=== PATIENT | female | born 1945 | race Caucasian/White ===

== ENCOUNTER 2022-02-28 12:26 | Observation (INO) | payer MEDICARE, OTHER ==
[~2022-02-28] VITALS: Ht 160 cm; Wt 55.3 kg
[~2022-02-28 12:26] MED LIST: ACET500 PO; ALBU90OI6 INH; ALBU90OI61 INH; AMLO5; AMLO5 PO; ASPI325 PO; ASPI81CH PO; ASPI81EC PO; ATOR10 PO; BETA BLOCKER; BUPR150T2 PO; BUPR75 PO; CALCIUM CARBONATE PO; CARI350 PO; CARV6.25 PO; CEFP200 PO; CITA20 PO; CLON.5 PO; CLON1 PO; CONEST.625 PO; CONEST1.25 PO; CYAN100 PO; CYAN1000I IM; Carisoprodol350 MG; Cymbalta30 MG; DESV50 PO; DICL50ER PO; DICL75ER PO; DILT120 PO; DIPH50 PO; DOXE10 PO; DULERA 200 MCG/13 GM INH; DULO30 PO; DULO60 PO; Desyrel50 MG PO; Duoneb 2.5-0.5 M3 ML IH; ELIQUIS5 MG PO; ESCI20 PO; ESOM20; ESOM20 PO; ESZO3 PO; EXELON PATCH; GABA300 PO; GABA600 PO; HYDACE5 PO; HYDMOR4 PO; HYDR1TAB94 PO; LEVO750 PO; LORA.5 PO; LORA1 PO; LOSA25 PO; MEMA10 PO; METF500 PO; METO5A PO; METPHE5; MODA200 PO; NAPR500EC PO; OMEP20ER PO; ONDA4 PO; ONDA4ODT MM; OXYACE5T PO; OXYACE7.5T PO; PANT40 PO; PAXIL; PROM25 PO; PROP80ER PO; ROPI1 PO; SERT100 PO; SIMV40 PO; SOMA350 MG PO; SUCR1 PO; SUDOGEST; TOLT4 PO; TOPI25 PO; TRAZ50 PO; VERAMYST NS; VITAMIN D-32000 UNIT PO; Vibramycin100 MG PO; ZOLP10
[2022-02-28 13:00] LABS: BASOPHILS ABSOLUTE AUTO 0.03 K/mm3 (0.00-0.23); BASOPHILS PERCENT AUTO 0 % (0-2); EOSINOPHILS ABSOLUTE AUTO 0.06 K/mm3 (0.00-0.68); EOSINOPHILS PERCENT AUTO 1 % (0-6); Hematocrit 34.8 % (33.0-51.0); Hemoglobin 11.2 g/dL (11.5-16.0); IMMATURE GRAN ABSOLUTE AUTO 0.04 K/mm3 (0.00-0.10); IMMATURE GRAN PERCENT AUTO 1 % (0-1); LYMPHOCYTES ABSOLUTE AUTO 1.79 K/mm3 (0.84-5.20); LYMPHOCYTES PERCENT AUTO 20 % (21-46); MONOCYTES PERCENT AUTO 6 % (4-13); Mean Corpuscular HGB 31.5 pg (26.0-34.0); Mean Corpuscular HGB Conc 32.2 g/dL (31.5-36.5); Mean Corpuscular Volume 98 fL (80-100); Mean Platelet Volume 9.5 fL (9.1-12.4); NEUTROPHILS ABSOLUTE AUTO 6.35 K/mm3 (1.96-9.15); NEUTROPHILS PERCENT AUTO 72 % (41-73); Platelet Count 235 K/mm3 (150-400); RDW Coefficient Variation 17.5 % (11.7-14.2); RDW Standard Deviation 63.4 fL (35.1-46.3); Red Blood Cell Count 3.55 M/mm3 (3.80-5.20); White Blood Cell Count 8.77 K/mm3 (4.00-11.30)
[2022-02-28 13:23] LABS: Albumin, Blood 3.4 g/dL (3.4-5.0); Bilirubin, Total 0.3 mg/dL (0.1-1.0); Bun/Creatinine Ratio 26.1 (12.0-20.0); Calcium, Blood 8.1 mg/dL (8.5-10.1); Globulin, Blood 3.4 g/dL (2.2-4.0); Potassium, Blood 4.1 mmol/L (3.5-5.5); Total Protein, Blood 6.8 g/dL (6.4-8.2)
[2022-02-28] MEDS ORDERED: ATOR40TA PO (15:25)
[2022-02-28] MEDS ORDERED: Buspirone HCl15 MG PO (15:26)
[2022-02-28] MEDS ORDERED: CARBIDOPA-LEVO1 EAC9 PO (15:27)
[2022-02-28] MEDS ORDERED: FURO20 PO (15:28)
[2022-02-28] MEDS ORDERED: Bentyl10 MG PO (15:28)
[2022-02-28] MEDS ORDERED: GABA100 PO (15:28)
[2022-02-28] MEDS ORDERED: SUBVENITE PO (15:28)
[2022-02-28] MEDS ORDERED: METO10 PO (15:29)
[2022-02-28] MEDS ORDERED: PANT40 PO (15:29)
[2022-02-28] MEDS ORDERED: METO25 PO (15:29)
[2022-02-28] MEDS ORDERED: PRAM.5 PO (15:29)
[2022-02-28] MEDS ORDERED: Hytrin1 MG PO (15:30)
[2022-02-28] MEDS ORDERED: SUCR1 (15:30)
[2022-02-28] MEDS ORDERED: Primidone50 MG PO (15:30)
[2022-02-28] MEDS ORDERED: TRAZ150T57 PO (15:31)
[2022-02-28] MEDS ORDERED: Midodrine HCl2.5 MG PO (15:31)
[2022-02-28] MEDS ORDERED: OXYC5 PO (15:32)
[2022-02-28] MEDS ORDERED: DOCU100 PO (15:32)
[2022-02-28] MEDS ORDERED: SACC250C PO (15:32)
[2022-02-28] MEDS ORDERED: ONDA4ODT MM (15:33)
[2022-02-28] MEDS ORDERED: Acetaminophen650 M1 PO (15:33)
[2022-02-28] MEDS ORDERED: COLCHICINE0.6 MG PO (15:33)
[2022-02-28] MEDS ORDERED: MIRALAX17 GM PO (15:33)
[2022-02-28] MEDS ORDERED: VITAMIN B125000 MC1 PO (15:34)
[2022-02-28] MEDS ORDERED: [UNRECOGNIZED DRUG - REMARK] PO (15:35)
--- NOTE | 2022-02-28 19:25 | NUR ---
SHIFT SUMMARY; PATIENT ARRIVED TO [facility] FLOOR AFTER 6PM TONIGHT. SHE IS TUCKED INTO BED AND ASSESSMENTS ARE FINISHED ALL EXCEPT PHYSICAL ASSESSMENT. PATIENT DENIES THAT SHE IS DIABETIC AND REPORT TO NOC SHIFT RN TO RELAY TO MD THAT MAY WANT TO CHANGE DIET ORDER. PATIENT IS AO X 4 ON ARRIVAL AND HER DAUGHTER SANDI AT BEDSIDE IS HER P.O.A. NO SKIN ISSUES ARE NOTED EXCEPT SCARRING OVER LEFT CHEST WALL WHERE PACEMAKER WAS PLACED. WILTONT ABLE TO STAND AND TRANSFER FROM [facility] TO BED WITHOUT DIFFICULTY AND SCOOTS HERSELF INTO A COMFORTABLE POSITION. PER DAUGHTER PATIENT TAKES HER MEDICATIONS WHOLE WITH PUDDING. PER REPORT FROM ER HER HR WAS ELEVATED IN THE 140'S AND LOPRESSOR WAS ORDERED HOWEVER WHEN IT ARRIVED SHE WAS IN THE 60'S SO LOPRESSOR WAS HELD. HAND OFF TO TIMMY CAPUTO AT SHIFT CHANGE.
--- NOTE | 2022-02-28 23:16 | NUR ---
URINE SAMPLE COLLECTED AND SENT TO LAB.
[2022-02-28 23:17] LABS: Source, Urine Clean Catch
[2022-02-28 23:19] LABS: Appearance, Urine Clear (Clear); Bilirubin, Urine Neg (Neg); Blood, Urine Neg (Neg); Color, Urine Pale Yellow (P-Yellow); Glucose Qualitative, Urine Neg (Neg); Ketones, Urine Neg (Neg); Leukocyte Esterase, Urine 1+ (Neg); Nitrite, Urine Neg (Neg); Protein, Urine Neg (Neg); Specific Gravity, Urine 1.015 (1.003-1.022); Urobilinogen, Urine NORM (Normal)
[2022-02-28 23:27] LABS: Bacteria Few /hpf; Red Blood Cells, Urine Not Seen /hpf (0-2); Squamous Epithelial Cells Few /hpf (Few)
--- NOTE | 2022-03-01 05:02 | NUR ---
SHIFT SUMMARY PATIENT REPORTED SIDHU X ONE AND TYLENOL GIVEN PER EMAR. ALSO REPORTED STERNUM PAIN AND OXYCODONE 5 MG GIVEN PER EMAR. AXOX 3-4 AND SBA TO BR. ON ROOM AIR. NPO AT THIS TIME. PIV REMAINS INTACT. TELEMETRY PACED @ 60 PER MONITOR. URINE COLLECTED AND SENT TO LAB. TAKES MEDICATION WHOLE A FEW AT A TIME IN PUDDING. VSS/AFEBRILE. DENIES SOB AND N/V. PATIENT SLEPT MOST OF THE SHIFT EXCEPT WHEN UP FOR URINARY URGENCY. CALL LIGHT IN REACH. BED IN LOWEST POSITION. WILL CONTINUE TO MONITOR UNTIL DAY SHIFT NURSE ASSUMES CARE.
--- NOTE | 2022-03-01 17:52 | NUR ---
SHIFT SUMMARY NO ACUTE CHANGES DURING SHIFT. PATIENT ALERT AND ORIENTED, CALLS APPROPRIATELY. PT ON RA, SBA TO BATHROOM. RESTING IMAGES TAKEN TODAY, STRESS TEST SCHEDULED FOR TOMORROW AT 0830. PT MEDICATED WITH PRN PAIN MEDICATION X 1 TODAY. NO OTHER NEEDS VOICED. CALL LIGHT WITHIN REACH.
--- NOTE | 2022-03-02 04:31 | NUR ---
SHIFT SUMMARY PATIENT HAD NO ACUTE CHANGES. NPO FOR STRESS TEST. AXOX 3-4 AND ONE ASSIST TO BR. TELEMETRY PACED @ 60. TAKES MEDICATION WHOLE WITH WATER A FEW AT A TIME. PIV REMAINS INTACT. DENIES CHEST PAIN, SOB, AND N/V. VSS/AFEBRILE. CALL LIGHT IN REACH. BED IN LOWEST POSITION. WILL CONTINUE TO MONITOR UNTIL DAY SHIFT NURSE ASSUMES CARE.
[2022-03-02 11:55] LABS: Source, Urine Clean Catch
[2022-03-02 11:59] LABS: Appearance, Urine Clear (Clear); Bilirubin, Urine Neg (Neg); Blood, Urine Neg (Neg); Color, Urine Yellow (P-Yellow); Glucose Qualitative, Urine Neg (Neg); Ketones, Urine Neg (Neg); Leukocyte Esterase, Urine 1+ (Neg); Nitrite, Urine Neg (Neg); Protein, Urine Neg (Neg); Urobilinogen, Urine NORM (Normal)
[2022-03-02] MEDS ORDERED: MIDO5 PO (12:20)
[2022-03-02] MEDS ORDERED: CEFD300 PO (12:23)
[2022-03-02 12:24] LABS: White Blood Cells, Urine 0-2 /hpf (0-5)
[2022-03-02] MEDS ORDERED: FLUC150A PO (12:24)
[2022-03-02 12:25] LABS: Red Blood Cells, Urine 0-2 /hpf (0-2)
[2022-03-02 12:26] LABS: Bacteria Rare /hpf; Squamous Epithelial Cells Few /hpf (Few)
== END 2022-03-02 13:27 | disposition home or self-care (01) ==
LOC: ER 12:26 → MEDS 12:27
PROVIDERS: Emergency Medicine; Nurse Practitioner Acute Care; Student in an Organized Health Care Education/Training Program; ADMIT Internal Medicine
DX: I20.0 Unstable angina (principal); I10 Essential (primary) hypertension; J45.909 Unspecified asthma, uncomplicated; K21.9 Gastro-esophageal reflux disease without esophagitis; E78.00 Pure hypercholesterolemia, unspecified; G20 Parkinson's disease; I48.0 Paroxysmal atrial fibrillation; M10.9 Gout, unspecified; F41.9 Anxiety disorder, unspecified; F31.9 Bipolar disorder, unspecified; I95.9 Hypotension, unspecified; E11.8 Type 2 diabetes mellitus with unspecified complications; R30.0 Dysuria; Z88.2 Allergy status to sulfonamides; Z88.1 Allergy status to other antibiotic agents; Z88.5 Allergy status to narcotic agent; Z88.8 Allergy status to other drugs, medicaments and biological substances; Z88.6 Allergy status to analgesic agent; Z91.040 Latex allergy status; Z91.018 Allergy to other foods; Z79.01 Long term (current) use of anticoagulants; Z79.82 Long term (current) use of aspirin; Z79.84 Long term (current) use of oral hypoglycemic drugs; Z86.73 Personal history of transient ischemic attack (TIA), and cerebral infarction without residual deficits; Z86.718 Personal history of other venous thrombosis and embolism; Z98.1 Arthrodesis status; Z96.652 Presence of left artificial knee joint; Z95.0 Presence of cardiac pacemaker; Z66 Do not resuscitate
CPT/HCPCS: 36415; 71045; 78452; 80053; 81001; 84484; 85025; 87086; 93005; 93010; 93017; 96372; 99285-25; A9270; A9500; G0378; J0706; J1650; J2785

== ENCOUNTER 2022-03-06 17:52 | Emergency (ER) | payer MEDICARE, OTHER ==
[~2022-03-06] VITALS: Ht 162.6 cm; Wt 68.0 kg
[~2022-03-06 17:52] MED LIST changes: +ATOR40TA PO; +Acetaminophen650 M1 PO; +Bentyl10 MG PO; +Buspirone HCl15 MG PO; +CARBIDOPA-LEVO1 EAC9 PO; +CEFD300 PO; +COLCHICINE0.6 MG PO; +DOCU100 PO; +FLUC150A PO; +FURO20 PO; +GABA100 PO; +Hytrin1 MG PO; +METO10 PO; +METO25 PO; +MIDO5 PO; +MIRALAX17 GM PO; +Midodrine HCl2.5 MG PO; +OXYC5 PO; +PRAM.5 PO; +Primidone50 MG PO; +SACC250C PO; +SUBVENITE PO; +SUCR1; +TRAZ150T57 PO; +VITAMIN B125000 MC1 PO; +[UNRECOGNIZED DRUG - REMARK] PO
[2022-03-06 18:37] LABS: BASOPHILS ABSOLUTE AUTO 0.03 K/mm3 (0.00-0.23); BASOPHILS PERCENT AUTO 1 % (0-2); EOSINOPHILS ABSOLUTE AUTO 0.11 K/mm3 (0.00-0.68); EOSINOPHILS PERCENT AUTO 2 % (0-6); Hematocrit 31.9 % (33.0-51.0); Hemoglobin 10.6 g/dL (11.5-16.0); IMMATURE GRAN ABSOLUTE AUTO 0.02 K/mm3 (0.00-0.10); IMMATURE GRAN PERCENT AUTO 0 % (0-1); LYMPHOCYTES ABSOLUTE AUTO 2.25 K/mm3 (0.84-5.20); LYMPHOCYTES PERCENT AUTO 41 % (21-46); MONOCYTES PERCENT AUTO 7 % (4-13); Mean Corpuscular HGB 32.6 pg (26.0-34.0); Mean Corpuscular HGB Conc 33.2 g/dL (31.5-36.5); Mean Corpuscular Volume 98 fL (80-100); Mean Platelet Volume 9.2 fL (9.1-12.4); NEUTROPHILS ABSOLUTE AUTO 2.65 K/mm3 (1.96-9.15); NEUTROPHILS PERCENT AUTO 49 % (41-73); Platelet Count 185 K/mm3 (150-400); RDW Standard Deviation 61.5 fL (35.1-46.3); Red Blood Cell Count 3.25 M/mm3 (3.80-5.20); White Blood Cell Count 5.46 K/mm3 (4.00-11.30)
[2022-03-06 18:52] LABS: Albumin, Blood 3.5 g/dL (3.4-5.0); Albumin/Globulin Ratio 1.2 (0.8-1.8); Bilirubin, Total 0.2 mg/dL (0.1-1.0); Bun/Creatinine Ratio 19.6 (12.0-20.0); Calcium, Blood 8.6 mg/dL (8.5-10.1); Creatinine, Blood 1.07 mg/dL (0.40-1.00); Globulin, Blood 2.9 g/dL (2.2-4.0); Magnesium, Blood 2.2 mg/dL (1.6-2.4); Potassium, Blood 4.3 mmol/L (3.5-5.5); Total Protein, Blood 6.4 g/dL (6.4-8.2)
== END 2022-03-06 23:24 | disposition home or self-care (01) ==
LOC: ER 17:52
PROVIDERS: Student in an Organized Health Care Education/Training Program
DX: R07.9 Chest pain, unspecified (principal); I48.0 Paroxysmal atrial fibrillation; E78.5 Hyperlipidemia, unspecified; K21.9 Gastro-esophageal reflux disease without esophagitis; E11.9 Type 2 diabetes mellitus without complications; Z88.2 Allergy status to sulfonamides; Z88.1 Allergy status to other antibiotic agents; Z88.5 Allergy status to narcotic agent; Z88.8 Allergy status to other drugs, medicaments and biological substances; Z88.6 Allergy status to analgesic agent; Z91.018 Allergy to other foods; Z79.899 Other long term (current) drug therapy; Z79.82 Long term (current) use of aspirin; Z86.73 Personal history of transient ischemic attack (TIA), and cerebral infarction without residual deficits
CPT/HCPCS: 71045; 80053; 83735; 84484; 85025; 93005; 93010; A9270

== ENCOUNTER 2022-03-13 07:06 | Observation (INO) | payer MEDICARE, OTHER ==
[~2022-03-13] VITALS: Ht 160 cm; Wt 55.5 kg
[~2022-03-13 07:06] MED LIST changes: -SUCR1
[2022-03-13 08:00] LABS: BASOPHILS ABSOLUTE AUTO 0.03 K/mm3 (0.00-0.23); BASOPHILS PERCENT AUTO 1 % (0-2); EOSINOPHILS ABSOLUTE AUTO 0.11 K/mm3 (0.00-0.68); EOSINOPHILS PERCENT AUTO 2 % (0-6); Hematocrit 38.2 % (33.0-51.0); Hemoglobin 12.3 g/dL (11.5-16.0); IMMATURE GRAN ABSOLUTE AUTO 0.01 K/mm3 (0.00-0.10); IMMATURE GRAN PERCENT AUTO 0 % (0-1); LYMPHOCYTES ABSOLUTE AUTO 2.36 K/mm3 (0.84-5.20); LYMPHOCYTES PERCENT AUTO 45 % (21-46); MONOCYTES ABSOLUTE AUTO 0.45 K/mm3 (0.16-1.47); MONOCYTES PERCENT AUTO 9 % (4-13); Mean Corpuscular HGB Conc 32.2 g/dL (31.5-36.5); Mean Corpuscular Volume 100 fL (80-100); NEUTROPHILS ABSOLUTE AUTO 2.33 K/mm3 (1.96-9.15); NEUTROPHILS PERCENT AUTO 44 % (41-73); Platelet Count 165 K/mm3 (150-400); RDW Coefficient Variation 17.2 % (11.7-14.2); RDW Standard Deviation 63.1 fL (35.1-46.3); Red Blood Cell Count 3.84 M/mm3 (3.80-5.20); White Blood Cell Count 5.29 K/mm3 (4.00-11.30)
[2022-03-13 08:21] LABS: Albumin, Blood 3.4 g/dL (3.4-5.0); Albumin/Globulin Ratio 1.1 (0.8-1.8); Bilirubin, Total 0.2 mg/dL (0.1-1.0); Bun/Creatinine Ratio 17.2 (12.0-20.0); Calcium, Blood 8.6 mg/dL (8.5-10.1); Creatinine, Blood 0.99 mg/dL (0.40-1.00); Globulin, Blood 3.1 g/dL (2.2-4.0); Magnesium, Blood 2.3 mg/dL (1.6-2.4); Potassium, Blood 5.3 mmol/L (3.5-5.5); Total Protein, Blood 6.5 g/dL (6.4-8.2)
--- NOTE | 2022-03-13 18:05 | NUR ---
SHIFT SUMMARY PATIENT IS ALERT AND ORIENTED. PATIENT WAS ADMITTED FOR A SYCOPE EPISODE AT HOME FROM ED. PATIENT HAS HAD NO ACUTE EVENTS THIS SHIFT. VITAL SIGNS REVIEWED. PATIENT HAS NOT COMPLAINED OF PAIN, NAUSEA, SOB, OR VOMITTING THIS SHIFT. PATIENT IS POSITIVE FOR ORTHOSTATIC HYPO. PATIENT IS RESTING COMFORTABLY IN BED SINCE ARRIVAL AT 1615. WILL MONITOR UNTIL SHIFT CHANGE.
--- NOTE | 2022-03-14 03:03 | NUR ---
MARKET RESEARCH ASSISTANT SUMMARY WAS ADMITTED YESTERDAY WITH SYNCOPAL EPISODES. NO NOTED SYNCOPAL EPISODE THIS SHIFT. SOME TREMORS OF UPPER EXTREMITIES. ALERT AND ORIENTED. UP TO BATHROOM WITH OBSERVATION. VSS. SOME DIFFICULTIES TO GET TO SLEEP, NOTIFIED AND ONE DOSE OF ATIVAN 0.5 MG PO ORDERED AND GIVEN, MED EFFECTIVE. HAS BEEN RESTING QUIETLY WITH FEW INTERRUPTIONS. CALL LIGHT IN REACH. WILL CONTINUE TO MONITOR
[2022-03-14 05:33] LABS: Bun/Creatinine Ratio 15.6 (12.0-20.0); Creatinine, Blood 0.9 mg/dL (0.40-1.00); Potassium, Blood 4.2 mmol/L (3.5-5.5)
--- NOTE | 2022-03-14 14:56 | NUR ---
AWARE OF ORTHOSTATIC BPS. DISCHARGE INSTRUCTIONS COMPLETED AND DISCUSSED WITH DAUGHTER AND PT EXPRESSING UNDERSTANDING. SCRIPTS FAXED TO [facility] ON [address]. TO [facility] VIA W/C.
== END 2022-03-14 14:08 | disposition home or self-care (01) ==
LOC: ER 07:06 → MEDS 07:07
PROVIDERS: Nurse Practitioner Acute Care; Student in an Organized Health Care Education/Training Program; ADMIT Internal Medicine
DX: I95.1 Orthostatic hypotension (principal); I48.0 Paroxysmal atrial fibrillation; M10.9 Gout, unspecified; E78.5 Hyperlipidemia, unspecified; K21.9 Gastro-esophageal reflux disease without esophagitis; I10 Essential (primary) hypertension; G20 Parkinson's disease; E11.9 Type 2 diabetes mellitus without complications; I25.10 Atherosclerotic heart disease of native coronary artery without angina pectoris; S09.90XA Unspecified injury of head, initial encounter; F31.9 Bipolar disorder, unspecified; F41.9 Anxiety disorder, unspecified; J45.909 Unspecified asthma, uncomplicated; W18.30XA Fall on same level, unspecified, initial encounter; Y92.002 Bathroom of unspecified non-institutional (private) residence as the place of occurrence of the external cause; Z66 Do not resuscitate; Z88.2 Allergy status to sulfonamides; Z88.1 Allergy status to other antibiotic agents; Z88.5 Allergy status to narcotic agent; Z88.8 Allergy status to other drugs, medicaments and biological substances; Z88.6 Allergy status to analgesic agent; Z91.018 Allergy to other foods; Z91.040 Latex allergy status; Z79.82 Long term (current) use of aspirin; Z86.718 Personal history of other venous thrombosis and embolism; Z86.73 Personal history of transient ischemic attack (TIA), and cerebral infarction without residual deficits; Z98.1 Arthrodesis status; Z96.652 Presence of left artificial knee joint
CPT/HCPCS: 36415; 70450; 71046; 80048; 80053; 83735; 83880; 84484; 85025; 93005; 93010; 96372; 97116; 97161; A9270; G0378; J1650; J7030

== ENCOUNTER 2022-03-21 19:14 | Emergency (ER) | payer MEDICARE, OTHER ==
[~2022-03-21] VITALS: Ht 160 cm; Wt 55.8 kg
[2022-03-21 20:52] LABS: Albumin, Blood 3.2 g/dL (3.4-5.0); Bilirubin, Total 0.3 mg/dL (0.1-1.0); Bun/Creatinine Ratio 17.8 (12.0-20.0); Calcium, Blood 8.4 mg/dL (8.5-10.1); Creatinine, Blood 1.07 mg/dL (0.40-1.00); Globulin, Blood 3.2 g/dL (2.2-4.0); Potassium, Blood 4.8 mmol/L (3.5-5.5); Total Protein, Blood 6.4 g/dL (6.4-8.2)
[2022-03-21 21:40] LABS: BASOPHILS ABSOLUTE AUTO 0.01 K/mm3 (0.00-0.23); BASOPHILS PERCENT AUTO 0 % (0-2); EOSINOPHILS ABSOLUTE AUTO 0.07 K/mm3 (0.00-0.68); EOSINOPHILS PERCENT AUTO 2 % (0-6); Hematocrit 28.5 % (33.0-51.0); Hemoglobin 9.7 g/dL (11.5-16.0); IMMATURE GRAN ABSOLUTE AUTO 0.01 K/mm3 (0.00-0.10); IMMATURE GRAN PERCENT AUTO 0 % (0-1); LYMPHOCYTES ABSOLUTE AUTO 1.74 K/mm3 (0.84-5.20); LYMPHOCYTES PERCENT AUTO 38 % (21-46); MONOCYTES ABSOLUTE AUTO 0.32 K/mm3 (0.16-1.47); MONOCYTES PERCENT AUTO 7 % (4-13); Mean Corpuscular HGB 33.2 pg (26.0-34.0); Mean Corpuscular Volume 98 fL (80-100); NEUTROPHILS ABSOLUTE AUTO 2.44 K/mm3 (1.96-9.15); NEUTROPHILS PERCENT AUTO 53 % (41-73); Platelet Count 155 K/mm3 (150-400); RDW Coefficient Variation 15.6 % (11.7-14.2); RDW Standard Deviation 55.5 fL (35.1-46.3); Red Blood Cell Count 2.92 M/mm3 (3.80-5.20); White Blood Cell Count 4.59 K/mm3 (4.00-11.30)
== END 2022-03-21 23:30 | disposition home or self-care (01) ==
LOC: ER 19:14
PROVIDERS: Emergency Medicine
DX: R07.9 Chest pain, unspecified (principal); I48.0 Paroxysmal atrial fibrillation; E78.5 Hyperlipidemia, unspecified; K21.9 Gastro-esophageal reflux disease without esophagitis; I10 Essential (primary) hypertension; E11.9 Type 2 diabetes mellitus without complications; J45.909 Unspecified asthma, uncomplicated; Z95.0 Presence of cardiac pacemaker; Z88.2 Allergy status to sulfonamides; Z88.1 Allergy status to other antibiotic agents; Z88.5 Allergy status to narcotic agent; Z88.8 Allergy status to other drugs, medicaments and biological substances; Z91.040 Latex allergy status; Z91.041 Radiographic dye allergy status; Z91.018 Allergy to other foods; Z79.899 Other long term (current) drug therapy; Z79.82 Long term (current) use of aspirin
CPT/HCPCS: 36415; 71045; 80053; 83880; 84484; 85025; 93005; 93010

== ENCOUNTER → 2022-04-23 | Outpatient (CLI) | payer MEDICARE, OTHER ==
[2022-04-23 15:57] LABS: Source, Urine Clean Catch
[2022-04-23 18:13] LABS: Appearance, Urine Clear (Clear); Bilirubin, Urine Neg (Neg); Blood, Urine 1+ (Neg); Color, Urine Yellow (P-Yellow); Glucose Qualitative, Urine Neg (Neg); Ketones, Urine Neg (Neg); Leukocyte Esterase, Urine 1+ (Neg); Nitrite, Urine Neg (Neg); Protein, Urine Neg (Neg); Specific Gravity, Urine 1.015 (1.003-1.022); Urobilinogen, Urine NORM (Normal)
[2022-04-23 18:28] LABS: Bacteria Many /hpf; Squamous Epithelial Cells Few /hpf (Few)
== END | disposition home or self-care (01) ==
LOC: LAB SHORT 15:56 → LAB 15:56
PROVIDERS: Internal Medicine
DX: R30.0 Dysuria (principal)
CPT/HCPCS: 81001; 87086

== ENCOUNTER 2022-04-27 19:37 | Emergency (ER) | payer MEDICARE, OTHER ==
[~2022-04-27] VITALS: Ht 160 cm; Wt 58.1 kg
[2022-04-27 21:29] LABS: Influenza A, PCR NEGATIVE (NEGATIVE); Influenza B, PCR NEGATIVE (NEGATIVE); Resp Syncytial Virus, PCR NEGATIVE (NEGATIVE); SARS-Cov-2 (COVID-19) PCR, MMC NEGATIVE (NEGATIVE)
== END 2022-04-27 22:23 | disposition home or self-care (01) ==
LOC: ER 19:37
PROVIDERS: Physician Assistant
DX: J34.89 Other specified disorders of nose and nasal sinuses (principal); E78.5 Hyperlipidemia, unspecified; G20 Parkinson's disease; E11.9 Type 2 diabetes mellitus without complications; K21.9 Gastro-esophageal reflux disease without esophagitis; R06.00 Dyspnea, unspecified; T78.40XA Allergy, unspecified, initial encounter; Z20.822 Contact with and (suspected) exposure to COVID-19; Z79.899 Other long term (current) drug therapy; Z79.82 Long term (current) use of aspirin; Z88.2 Allergy status to sulfonamides; Z88.5 Allergy status to narcotic agent; Z88.1 Allergy status to other antibiotic agents; Z88.8 Allergy status to other drugs, medicaments and biological substances; Z91.018 Allergy to other foods; Z86.73 Personal history of transient ischemic attack (TIA), and cerebral infarction without residual deficits
CPT/HCPCS: 0241U; 71046

== ENCOUNTER 2022-05-29 19:03 | Emergency (ER) | payer MEDICARE, OTHER ==
[~2022-05-29] VITALS: Ht 160 cm; Wt 57.1 kg
[~2022-05-29 19:03] MED LIST changes: +TRAZ100 PO; -TRAZ150T57 PO
[2022-05-31] MEDS ORDERED: CYMBALTA30 M2 PO (20:22)
[2022-05-31] MEDS ORDERED: QUETIAPINE FUMA25 MG PO (20:24)
[2022-05-31] MEDS ORDERED: NEURONTIN300 MG PO (20:25)
[2022-05-31] MEDS ORDERED: GABA300 PO (20:25)
[2022-05-31] MEDS ORDERED: Ativan1 MG PO (20:26)
[2022-05-31] MEDS ORDERED: DEXA4 PO (20:27)
[2022-06-02] MEDS ORDERED: HYDCOR10 PO (12:47)
== END 2022-05-29 20:13 | disposition left against medical advice (07) ==
LOC: ER 19:03
DX: K92.0 Hematemesis (principal); Z79.899 Other long term (current) drug therapy; Z79.82 Long term (current) use of aspirin; Z53.21 Procedure and treatment not carried out due to patient leaving prior to being seen by health care provider
CPT/HCPCS: 99281

== ENCOUNTER 2022-06-03 19:20 | Emergency (ER) | payer MEDICARE, OTHER ==
[~2022-06-03] VITALS: Ht 160 cm; Wt 57.1 kg
[~2022-06-03 19:20] MED LIST changes: +Ativan1 MG PO; +CYMBALTA30 M2 PO; +DEXA4 PO; +HYDCOR10 PO; +NEURONTIN300 MG PO; +QUETIAPINE FUMA25 MG PO
[2022-06-03 21:16] LABS: Albumin, Blood 3.7 g/dL (3.4-5.0); Bilirubin, Total 0.9 mg/dL (0.1-1.0); Bun/Creatinine Ratio 18.6 (12.0-20.0); Calcium, Blood 9.2 mg/dL (8.5-10.1); Creatinine, Blood 0.92 mg/dL (0.40-1.00); Globulin, Blood 3.6 g/dL (2.2-4.0); Potassium, Blood 5.3 mmol/L (3.5-5.5); Total Protein, Blood 7.3 g/dL (6.4-8.2)
[2022-06-03 21:34] LABS: Source, Urine Clean Catch
[2022-06-03 21:38] LABS: Bilirubin, Urine Neg (Neg); Blood, Urine 2+ (Neg); Glucose Qualitative, Urine Neg (Neg); Ketones, Urine Neg (Neg); Leukocyte Esterase, Urine Neg (Neg); Nitrite, Urine Neg (Neg); Protein, Urine 1+ (Neg); Urobilinogen, Urine NORM (Normal)
[2022-06-03 22:01] LABS: Appearance, Urine Clear (Clear); Color, Urine Yellow (P-Yellow)
[2022-06-03 22:02] LABS: Bacteria Few /hpf; Squamous Epithelial Cells Rare /hpf (Few); White Blood Cells, Urine 0-2 /hpf (0-5)
== END 2022-06-04 00:32 | disposition left against medical advice (07) ==
LOC: ER 19:20
PROVIDERS: Student in an Organized Health Care Education/Training Program
DX: I10 Essential (primary) hypertension (principal); Z79.899 Other long term (current) drug therapy; Z79.82 Long term (current) use of aspirin; Z53.21 Procedure and treatment not carried out due to patient leaving prior to being seen by health care provider
CPT/HCPCS: 36415; 71046; 80053; 81001; 84484; 93005; 93010

== ENCOUNTER 2022-07-09 19:15 | Emergency (ER) | payer MEDICARE, OTHER ==
[~2022-07-09] VITALS: Ht 160 cm; Wt 55.8 kg
[~2022-07-09 19:15] MED LIST changes: +Diflucan100 MG PO; +NITR100CA PO
== END 2022-07-09 21:05 | disposition home or self-care (01) ==
LOC: ER 19:15
DX: S50.02XA Contusion of left elbow, initial encounter (principal); S40.012A Contusion of left shoulder, initial encounter; R55 Syncope and collapse; I25.2 Old myocardial infarction; I10 Essential (primary) hypertension; W19.XXXA Unspecified fall, initial encounter; Z79.899 Other long term (current) drug therapy
CPT/HCPCS: 73030; 73080; 99284-25; A9270

== ENCOUNTER 2022-07-14 11:34 | Observation (INO) | payer MEDICARE, OTHER ==
[~2022-07-14] VITALS: Ht 160 cm; Wt 54.9 kg
[2022-07-14 13:00] LABS: Source, Urine Clean Catch
[2022-07-14 13:02] LABS: BASOPHILS ABSOLUTE AUTO 0.04 K/mm3 (0.00-0.23); BASOPHILS PERCENT AUTO 0 % (0-2); EOSINOPHILS ABSOLUTE AUTO 0.07 K/mm3 (0.00-0.68); EOSINOPHILS PERCENT AUTO 1 % (0-6); Hematocrit 30.7 % (33.0-51.0); Hemoglobin 10.1 g/dL (11.5-16.0); IMMATURE GRAN ABSOLUTE AUTO 0.03 K/mm3 (0.00-0.10); IMMATURE GRAN PERCENT AUTO 0 % (0-1); LYMPHOCYTES ABSOLUTE AUTO 1.34 K/mm3 (0.84-5.20); LYMPHOCYTES PERCENT AUTO 14 % (21-46); MONOCYTES ABSOLUTE AUTO 0.54 K/mm3 (0.16-1.47); MONOCYTES PERCENT AUTO 6 % (4-13); Mean Corpuscular HGB 33.3 pg (26.0-34.0); Mean Corpuscular HGB Conc 32.9 g/dL (31.5-36.5); Mean Corpuscular Volume 101 fL (80-100); Mean Platelet Volume 9.1 fL (9.1-12.4); NEUTROPHILS ABSOLUTE AUTO 7.28 K/mm3 (1.96-9.15); NEUTROPHILS PERCENT AUTO 78 % (41-73); Platelet Count 184 K/mm3 (150-400); RDW Coefficient Variation 13.5 % (11.7-14.2); RDW Standard Deviation 49.5 fL (35.1-46.3); Red Blood Cell Count 3.03 M/mm3 (3.80-5.20)
[2022-07-14 13:09] LABS: Appearance, Urine Cloudy (Clear); Bilirubin, Urine Neg (Neg); Blood, Urine 1+ (Neg); Color, Urine Yellow (P-Yellow); Glucose Qualitative, Urine Neg (Neg); Ketones, Urine Neg (Neg); Leukocyte Esterase, Urine 3+ (Neg); Nitrite, Urine Neg (Neg); Protein, Urine 2+ (Neg); Specific Gravity, Urine 1.025 (1.003-1.022); Urobilinogen, Urine NORM (Normal)
[2022-07-14 13:28] LABS: Bacteria Few /hpf; Squamous Epithelial Cells Few /hpf (Few); White Blood Cells, Urine 50-100 /hpf (0-5)
[2022-07-14 13:32] LABS: Salicylate <1.7 mg/dL (2.8-20.0)
[2022-07-14 13:36] LABS: Acetaminophen, Random 9.7 ug/mL (10.0-30.0); Alanine Aminotransfer (ALT/SGP 12 U/L (12-78); Albumin, Blood 3.2 g/dL (3.4-5.0); Albumin/Globulin Ratio 1.1 (0.8-1.8); Alk Phos 57 U/L (50-136); Anion Gap 4 mmol/L (6-16); Aspartate Aminotrans (AST/SGOT 20 U/L (12-37); Bilirubin, Total 0.5 mg/dL (0.1-1.0); Blood Urea Nitrogen 23 mg/dL (8-24); Bun/Creatinine Ratio 21.3 (12.0-20.0); CO2, Blood 24 mmol/L (21-32); Calcium, Blood 8.7 mg/dL (8.5-10.1); Chloride, Blood 110 mmol/L (98-108); Creatinine, Blood 1.08 mg/dL (0.40-1.00); Ethanol (Alcohol), Blood, Med 3 mg/dL; Globulin, Blood 2.9 g/dL (2.2-4.0); Glomerular Filtration Rate 54 (60-); Glucose, Blood 108 mg/dL (70-99); Potassium, Blood 4.6 mmol/L (3.5-5.5); Sodium, Blood 138 mmol/L (136-145); Total Protein, Blood 6.1 g/dL (6.4-8.2)
[2022-07-14 16:09] LABS: U Amphetamine Screen Not Detected; U Barbituate Screen Not Detected; U Benzodiazapine Screen DETECTED; U Buprenorphine Screen Not Detected; U Cannabinoids Screen Not Detected; U Cocaine Screen Not Detected; U Methadone Screen Not Detected; U Methamphetamine Screen Not Detected; U Opiates Screen Not Detected; U Oxycodone Screen Not Detected; U Phencyclidine Screen Not Detected; U Propoxyphene Screen Not Detected
[2022-07-14 16:47] LABS: Influenza A, PCR NEGATIVE (NEGATIVE); Influenza B, PCR NEGATIVE (NEGATIVE); Resp Syncytial Virus, PCR NEGATIVE (NEGATIVE); SARS-Cov-2 (COVID-19) PCR, MMC NEGATIVE (NEGATIVE)
[2022-07-15] MEDS ORDERED: Bentyl10 MG PO (01:51)
[2022-07-15] MEDS ORDERED: Lamictal150 MG PO (01:52)
[2022-07-15] MEDS ORDERED: MIDO5 PO (01:58)
[2022-07-15] MEDS ORDERED: FLUDROCORTISON0.1 M2 PO (01:58)
[2022-07-15] MEDS ORDERED: MORP10S (02:00)
== END 2022-07-15 13:30 ==
LOC: ER 11:34 → EOR 11:35
PROVIDERS: Physician Assistant; Student in an Organized Health Care Education/Training Program; ADMIT Emergency Medicine
DX: F31.9 Bipolar disorder, unspecified (principal); E78.5 Hyperlipidemia, unspecified; K21.9 Gastro-esophageal reflux disease without esophagitis; G20 Parkinson's disease; E11.9 Type 2 diabetes mellitus without complications; J45.909 Unspecified asthma, uncomplicated; Z88.6 Allergy status to analgesic agent; Z88.1 Allergy status to other antibiotic agents; Z91.040 Latex allergy status; Z88.5 Allergy status to narcotic agent; Z88.8 Allergy status to other drugs, medicaments and biological substances; Z91.018 Allergy to other foods; Z79.899 Other long term (current) drug therapy; Z79.82 Long term (current) use of aspirin; Z20.822 Contact with and (suspected) exposure to COVID-19
CPT/HCPCS: 0241U; 80053; 81001; 85025; 87086; 93005; 93010; 99285-25; A9270; G0378; G0480; Q3014

== ENCOUNTER 2022-08-19 02:22 | Day surgery (SDC) | payer MEDICARE, OTHER ==
[~2022-08-19 02:22] MED LIST changes: +FLUDROCORTISON0.1 M2 PO; +Lamictal150 MG PO; +MORP10S
[2022-08-19] MEDS ORDERED: TRAZ100 PO (10:39)
== END 2022-08-19 11:05 | disposition home or self-care (01) ==
LOC: ATC 02:22
DX: I95.1 Orthostatic hypotension (principal); G20 Parkinson's disease; I48.0 Paroxysmal atrial fibrillation; E55.9 Vitamin D deficiency, unspecified; Z79.899 Other long term (current) drug therapy; Z79.82 Long term (current) use of aspirin; Z88.5 Allergy status to narcotic agent; Z88.1 Allergy status to other antibiotic agents
CPT/HCPCS: 36415; 80400; 82533; 96374; J0834

== ENCOUNTER 2022-09-18 14:24 | Emergency (ER) | payer MEDICARE, OTHER ==
[~2022-09-18] VITALS: Ht 160 cm; Wt 61.2 kg
[2022-09-18 15:08] LABS: BASOPHILS ABSOLUTE AUTO 0.03 K/mm3 (0.00-0.23); BASOPHILS PERCENT AUTO 0 % (0-2); EOSINOPHILS ABSOLUTE AUTO 0.03 K/mm3 (0.00-0.68); EOSINOPHILS PERCENT AUTO 0 % (0-6); Hematocrit 33.5 % (33.0-51.0); Hemoglobin 10.9 g/dL (11.5-16.0); IMMATURE GRAN ABSOLUTE AUTO 0.02 K/mm3 (0.00-0.10); IMMATURE GRAN PERCENT AUTO 0 % (0-1); LYMPHOCYTES ABSOLUTE AUTO 1.49 K/mm3 (0.84-5.20); LYMPHOCYTES PERCENT AUTO 22 % (21-46); MONOCYTES ABSOLUTE AUTO 0.45 K/mm3 (0.16-1.47); MONOCYTES PERCENT AUTO 7 % (4-13); Mean Corpuscular HGB 31.5 pg (26.0-34.0); Mean Corpuscular HGB Conc 32.5 g/dL (31.5-36.5); Mean Corpuscular Volume 97 fL (80-100); Mean Platelet Volume 9.4 fL (9.1-12.4); NEUTROPHILS ABSOLUTE AUTO 4.91 K/mm3 (1.96-9.15); NEUTROPHILS PERCENT AUTO 71 % (41-73); Platelet Count 204 K/mm3 (150-400); RDW Coefficient Variation 13.6 % (11.7-14.2); Red Blood Cell Count 3.46 M/mm3 (3.80-5.20); White Blood Cell Count 6.93 K/mm3 (4.00-11.30)
[2022-09-18 15:23] LABS: Albumin, Blood 3.6 g/dL (3.4-5.0); Bilirubin, Total 0.5 mg/dL (0.1-1.0); Bun/Creatinine Ratio 27.2 (12.0-20.0); Calcium, Blood 8.5 mg/dL (8.5-10.1); Creatinine, Blood 1.03 mg/dL (0.40-1.00); Globulin, Blood 3.7 g/dL (2.2-4.0); Potassium, Blood 4.5 mmol/L (3.5-5.5); Total Protein, Blood 7.3 g/dL (6.4-8.2)
[2022-09-18 17:57] VITALS: BP 151/72
== END 2022-09-18 17:57 | disposition home or self-care (01) ==
LOC: ER 14:24
PROVIDERS: Emergency Medicine
DX: R07.89 Other chest pain (principal); R13.10 Dysphagia, unspecified; R10.9 Unspecified abdominal pain; E78.5 Hyperlipidemia, unspecified; I10 Essential (primary) hypertension; G20 Parkinson's disease; K21.9 Gastro-esophageal reflux disease without esophagitis; E11.9 Type 2 diabetes mellitus without complications; Z88.2 Allergy status to sulfonamides; Z88.1 Allergy status to other antibiotic agents; Z88.5 Allergy status to narcotic agent; Z88.8 Allergy status to other drugs, medicaments and biological substances; Z96.652 Presence of left artificial knee joint; Z91.040 Latex allergy status; Z91.018 Allergy to other foods; Z79.899 Other long term (current) drug therapy; Z79.82 Long term (current) use of aspirin
CPT/HCPCS: 71046; 80053; 83690; 84484; 85025; 93005; 93010; 99285-25; A9270

== ENCOUNTER → 2022-11-19 | Outpatient (CLI) | payer MEDICARE, OTHER ==
[~2022-11-19] MED LIST changes: +ACET325 PO; -ASPI81CH PO; +Aspir 8181 MG PO; +B-12 COMPL1000 MCG/2 IM; -CARBIDOPA-LEVO1 EAC9 PO; +Calcium Carbon500 MG PO; +ELIQUIS5 M2 PO; +LACTAID PO; +LIDO700A20 TOP; +LOPE2C PO; +MAGNESIUM PO; +MIRT15 PO; +MIRT15ST; +PANT20 PO; +QUET100 PO; +QUET25 PO; +SINEMET 25-1001 EAC1 PO; +Vitamin D1000 UNI1 PO
[2022-11-19 15:16] LABS: Appearance, Urine Clear (Clear); Bilirubin, Urine Neg (Neg); Blood, Urine 1+ (Neg); Color, Urine Yellow (P-Yellow); Glucose Qualitative, Urine Neg (Neg); Ketones, Urine Neg (Neg); Leukocyte Esterase, Urine 2+ (Neg); Nitrite, Urine Neg (Neg); Protein, Urine 1+ (Neg); Specific Gravity, Urine 1.015 (1.003-1.022); Urobilinogen, Urine NORM (Normal)
[2022-11-19 15:28] LABS: Bacteria Mod /hpf; Hyaline Casts 0-2 /lpf (0-2); Squamous Epithelial Cells Few /hpf (Few); White Blood Cells, Urine 25-50 /hpf (0-5)
== END | disposition home or self-care (01) ==
LOC: LAB SHORT 11:00 → LAB 11:00
PROVIDERS: Internal Medicine
DX: N39.0 Urinary tract infection, site not specified (principal)
CPT/HCPCS: 81001; 87077; 87086; 87186

== ENCOUNTER 2022-11-21 14:22 | Emergency (ER) | payer MEDICARE, OTHER ==
[~2022-11-21] VITALS: Ht 165.1 cm; Wt 63.5 kg
[~2022-11-21 14:22] MED LIST changes: -MIRT15ST
[2022-11-21] MEDS ORDERED: MIRT15ST (14:51)
[2022-11-21 14:59] LABS: BASOPHILS ABSOLUTE AUTO 0.03 K/mm3 (0.00-0.23); BASOPHILS PERCENT AUTO 0 % (0-2); EOSINOPHILS ABSOLUTE AUTO 0.06 K/mm3 (0.00-0.68); EOSINOPHILS PERCENT AUTO 1 % (0-6); Hematocrit 32.4 % (33.0-51.0); Hemoglobin 10.3 g/dL (11.5-16.0); IMMATURE GRAN ABSOLUTE AUTO 0.04 K/mm3 (0.00-0.10); IMMATURE GRAN PERCENT AUTO 1 % (0-1); LYMPHOCYTES ABSOLUTE AUTO 2.27 K/mm3 (0.84-5.20); LYMPHOCYTES PERCENT AUTO 29 % (21-46); MONOCYTES ABSOLUTE AUTO 0.43 K/mm3 (0.16-1.47); MONOCYTES PERCENT AUTO 6 % (4-13); Mean Corpuscular HGB 29.9 pg (26.0-34.0); Mean Corpuscular HGB Conc 31.8 g/dL (31.5-36.5); Mean Corpuscular Volume 94 fL (80-100); Mean Platelet Volume 9.4 fL (9.1-12.4); NEUTROPHILS ABSOLUTE AUTO 4.91 K/mm3 (1.96-9.15); NEUTROPHILS PERCENT AUTO 63 % (41-73); Platelet Count 211 K/mm3 (150-400); RDW Coefficient Variation 15.2 % (11.7-14.2); RDW Standard Deviation 52.3 fL (35.1-46.3); Red Blood Cell Count 3.44 M/mm3 (3.80-5.20); White Blood Cell Count 7.74 K/mm3 (4.00-11.30)
[2022-11-21 15:30] LABS: Albumin, Blood 3.5 g/dL (3.4-5.0); Albumin/Globulin Ratio 1.1 (0.8-1.8); Bilirubin, Total 0.4 mg/dL (0.1-1.0); Bun/Creatinine Ratio 14.8 (12.0-20.0); Calcium, Blood 8.5 mg/dL (8.5-10.1); Creatinine, Blood 1.15 mg/dL (0.40-1.00); Globulin, Blood 3.3 g/dL (2.2-4.0); Potassium, Blood 5.2 mmol/L (3.5-5.5); Total Protein, Blood 6.8 g/dL (6.4-8.2)
[2022-11-21 16:18] LABS: Source, Urine Straight Cath
[2022-11-21 16:45] LABS: Appearance, Urine Clear (Clear); Bilirubin, Urine Neg (Neg); Blood, Urine 1+ (Neg); Color, Urine Yellow (P-Yellow); Glucose Qualitative, Urine Neg (Neg); Ketones, Urine Neg (Neg); Leukocyte Esterase, Urine Neg (Neg); Nitrite, Urine Neg (Neg); Protein, Urine Neg (Neg); Urobilinogen, Urine NORM (Normal)
[2022-11-21 16:59] LABS: Bacteria Few /hpf; Squamous Epithelial Cells Few /hpf (Few); White Blood Cells, Urine 0-2 /hpf (0-5)
[2022-11-21 17:30] VITALS: BP 165/95
== END 2022-11-21 17:45 | disposition home or self-care (01) ==
LOC: ER 14:22
PROVIDERS: Emergency Medicine
DX: R53.1 Weakness (principal); R47.01 Aphasia; E78.5 Hyperlipidemia, unspecified; K21.9 Gastro-esophageal reflux disease without esophagitis; I10 Essential (primary) hypertension; G20 Parkinson's disease; I25.10 Atherosclerotic heart disease of native coronary artery without angina pectoris; E11.9 Type 2 diabetes mellitus without complications; J45.909 Unspecified asthma, uncomplicated; Z86.73 Personal history of transient ischemic attack (TIA), and cerebral infarction without residual deficits; Z86.718 Personal history of other venous thrombosis and embolism; Z88.2 Allergy status to sulfonamides; Z88.1 Allergy status to other antibiotic agents; Z88.5 Allergy status to narcotic agent; Z91.048 Other nonmedicinal substance allergy status; Z88.8 Allergy status to other drugs, medicaments and biological substances; Z91.040 Latex allergy status; Z91.018 Allergy to other foods; Z79.01 Long term (current) use of anticoagulants; Z79.899 Other long term (current) drug therapy
CPT/HCPCS: 51701; 70450; 80053; 81001; 82947; 85025; 93005; 93010; 96374; 96375; 99285-25; A9270; J2060; J2405

== ENCOUNTER 2022-11-26 12:39 | Emergency (ER) | payer MEDICARE, OTHER ==
[~2022-11-26] VITALS: Ht 170.2 cm; Wt 81.7 kg
[~2022-11-26 12:39] MED LIST changes: +MIRT15ST
[2022-11-26 13:27] LABS: BASOPHILS ABSOLUTE AUTO 0.03 K/mm3 (0.00-0.23); BASOPHILS PERCENT AUTO 0 % (0-2); EOSINOPHILS ABSOLUTE AUTO 0.02 K/mm3 (0.00-0.68); EOSINOPHILS PERCENT AUTO 0 % (0-6); Hematocrit 31.8 % (33.0-51.0); Hemoglobin 10.3 g/dL (11.5-16.0); IMMATURE GRAN ABSOLUTE AUTO 0.03 K/mm3 (0.00-0.10); IMMATURE GRAN PERCENT AUTO 0 % (0-1); LYMPHOCYTES ABSOLUTE AUTO 2.04 K/mm3 (0.84-5.20); LYMPHOCYTES PERCENT AUTO 25 % (21-46); MONOCYTES ABSOLUTE AUTO 0.53 K/mm3 (0.16-1.47); MONOCYTES PERCENT AUTO 6 % (4-13); Mean Corpuscular HGB 30.1 pg (26.0-34.0); Mean Corpuscular HGB Conc 32.4 g/dL (31.5-36.5); Mean Corpuscular Volume 93 fL (80-100); Mean Platelet Volume 9.1 fL (9.1-12.4); NEUTROPHILS ABSOLUTE AUTO 5.61 K/mm3 (1.96-9.15); NEUTROPHILS PERCENT AUTO 68 % (41-73); Platelet Count 213 K/mm3 (150-400); RDW Coefficient Variation 15.4 % (11.7-14.2); RDW Standard Deviation 53.1 fL (35.1-46.3); Red Blood Cell Count 3.42 M/mm3 (3.80-5.20); White Blood Cell Count 8.26 K/mm3 (4.00-11.30)
[2022-11-26 13:44] LABS: Albumin, Blood 3.4 g/dL (3.4-5.0); Bilirubin, Total 0.6 mg/dL (0.1-1.0); Bun/Creatinine Ratio 17.6 (12.0-20.0); Calcium, Blood 8.2 mg/dL (8.5-10.1); Creatinine, Blood 1.08 mg/dL (0.40-1.00); Globulin, Blood 3.3 g/dL (2.2-4.0); Potassium, Blood 4.7 mmol/L (3.5-5.5); Total Protein, Blood 6.7 g/dL (6.4-8.2)
[2022-11-26 16:30] VITALS: BP 130/75
[2022-11-26] MEDS ORDERED: METO10 PO (17:31)
[2022-11-26] MEDS ORDERED: ACET500 PO (17:31)
== END 2022-11-26 17:54 | disposition home or self-care (01) ==
LOC: ER 12:39
PROVIDERS: Student in an Organized Health Care Education/Training Program
DX: G43.409 Hemiplegic migraine, not intractable, without status migrainosus (principal); R29.818 Other symptoms and signs involving the nervous system; R29.810 Facial weakness; E78.5 Hyperlipidemia, unspecified; I10 Essential (primary) hypertension; G20 Parkinson's disease; E11.9 Type 2 diabetes mellitus without complications; J45.909 Unspecified asthma, uncomplicated; I48.0 Paroxysmal atrial fibrillation; K21.9 Gastro-esophageal reflux disease without esophagitis; Z86.73 Personal history of transient ischemic attack (TIA), and cerebral infarction without residual deficits; Z86.718 Personal history of other venous thrombosis and embolism; Z88.2 Allergy status to sulfonamides; Z88.1 Allergy status to other antibiotic agents; Z88.5 Allergy status to narcotic agent; Z91.018 Allergy to other foods; Z88.8 Allergy status to other drugs, medicaments and biological substances; Z91.040 Latex allergy status; Z88.6 Allergy status to analgesic agent; Z79.01 Long term (current) use of anticoagulants; Z79.899 Other long term (current) drug therapy
CPT/HCPCS: 70450; 70496; 70498; 80053; 85025; 93005; 93010; 96361; 96374-59; 96375-59; 99285-25; A9270; J1200; J2060; J2765; J7030; Q9967

== ENCOUNTER 2022-12-24 18:20 | Emergency (ER) | payer MEDICARE, OTHER | END 2022-12-24 20:21 | disposition home or self-care (01) | LOC: ER 18:20 | DX: G43.909 Migraine, unspecified, not intractable, without status migrainosus (principal); R07.9 Chest pain, unspecified; R06.02 Shortness of breath; I48.0 Paroxysmal atrial fibrillation; E78.5 Hyperlipidemia, unspecified; K21.9 Gastro-esophageal reflux disease without esophagitis; J45.909 Unspecified asthma, uncomplicated; E11.9 Type 2 diabetes mellitus without complications; G20 Parkinson's disease; I69.920 Aphasia following unspecified cerebrovascular disease; Z95.0 Presence of cardiac pacemaker; Z88.2 Allergy status to sulfonamides; Z88.1 Allergy status to other antibiotic agents; Z88.5 Allergy status to narcotic agent; Z88.8 Allergy status to other drugs, medicaments and biological substances; Z91.040 Latex allergy status; Z91.018 Allergy to other foods; Z79.899 Other long term (current) drug therapy; Z79.01 Long term (current) use of anticoagulants ==

== ENCOUNTER 2023-01-08 13:34 | Day surgery (SDC) | payer MEDICARE, OTHER ==
[~2023-01-08] VITALS: Ht 160 cm; Wt 67.9 kg
[2023-01-08 16:26] VITALS: BP 134/64
--- NOTE | 2023-01-08 16:28 | NUR ---
01/08/23 1628 Roxana Perera IV, DC'Hai AT 1605/WNL/PATIENT TOLERATED IT WELL
== END 2023-01-08 16:15 | disposition home or self-care (01) ==
LOC: ORSCSDS 13:34
DX: D50.9 Iron deficiency anemia, unspecified (principal); R11.2 Nausea with vomiting, unspecified; K29.70 Gastritis, unspecified, without bleeding; Z93.1 Gastrostomy status; Z80.0 Family history of malignant neoplasm of digestive organs; E11.22 Type 2 diabetes mellitus with diabetic chronic kidney disease; N18.30 Chronic kidney disease, stage 3 unspecified; I25.10 Atherosclerotic heart disease of native coronary artery without angina pectoris; E78.5 Hyperlipidemia, unspecified; G47.33 Obstructive sleep apnea (adult) (pediatric); G20 Parkinson's disease; Z86.73 Personal history of transient ischemic attack (TIA), and cerebral infarction without residual deficits; F31.9 Bipolar disorder, unspecified; I25.2 Old myocardial infarction; I48.0 Paroxysmal atrial fibrillation; Z85.038 Personal history of other malignant neoplasm of large intestine; Z79.899 Other long term (current) drug therapy
CPT/HCPCS: 88305; 88342; J2001; J2704; J7120

== ENCOUNTER 2023-02-16 13:42 | Emergency (ER) | payer MEDICARE, OTHER ==
[~2023-02-16] VITALS: Ht 160 cm; Wt 69.4 kg
[2023-02-16 14:00] VITALS: BP 141/70
[2023-02-16 15:13] LABS: BASOPHILS ABSOLUTE AUTO 0.02 K/mm3 (0.00-0.23); BASOPHILS PERCENT AUTO 0 % (0-2); EOSINOPHILS ABSOLUTE AUTO 0.04 K/mm3 (0.00-0.68); EOSINOPHILS PERCENT AUTO 1 % (0-6); Hematocrit 39.4 % (33.0-51.0); Hemoglobin 12.4 g/dL (11.5-16.0); IMMATURE GRAN ABSOLUTE AUTO 0.02 K/mm3 (0.00-0.10); IMMATURE GRAN PERCENT AUTO 0 % (0-1); LYMPHOCYTES ABSOLUTE AUTO 1.66 K/mm3 (0.84-5.20); LYMPHOCYTES PERCENT AUTO 22 % (21-46); MONOCYTES ABSOLUTE AUTO 0.45 K/mm3 (0.16-1.47); MONOCYTES PERCENT AUTO 6 % (4-13); Mean Corpuscular HGB 32.5 pg (26.0-34.0); Mean Corpuscular HGB Conc 31.5 g/dL (31.5-36.5); Mean Corpuscular Volume 103 fL (80-100); Mean Platelet Volume 9.6 fL (9.1-12.4); NEUTROPHILS ABSOLUTE AUTO 5.25 K/mm3 (1.96-9.15); NEUTROPHILS PERCENT AUTO 71 % (41-73); Platelet Count 169 K/mm3 (150-400); RDW Standard Deviation 61.5 fL (35.1-46.3); Red Blood Cell Count 3.82 M/mm3 (3.80-5.20); White Blood Cell Count 7.44 K/mm3 (4.00-11.30)
[2023-02-16 15:35] LABS: Albumin, Blood 3.4 g/dL (3.4-5.0); Bilirubin, Total 0.3 mg/dL (0.1-1.0); Bun/Creatinine Ratio 15.5 (12.0-20.0); Calcium, Blood 8.3 mg/dL (8.5-10.1); Creatinine, Blood 1.1 mg/dL (0.40-1.00); Globulin, Blood 3.4 g/dL (2.2-4.0); Potassium, Blood 3.9 mmol/L (3.5-5.5); Total Protein, Blood 6.8 g/dL (6.4-8.2)
== END 2023-02-16 17:35 | disposition home or self-care (01) ==
LOC: ER 13:42
PROVIDERS: Emergency Medicine
DX: S09.90XA Unspecified injury of head, initial encounter (principal); G43.909 Migraine, unspecified, not intractable, without status migrainosus; R55 Syncope and collapse; I48.0 Paroxysmal atrial fibrillation; E78.5 Hyperlipidemia, unspecified; E11.9 Type 2 diabetes mellitus without complications; I51.81 Takotsubo syndrome; J45.909 Unspecified asthma, uncomplicated; Z88.1 Allergy status to other antibiotic agents; Z88.2 Allergy status to sulfonamides; Z88.5 Allergy status to narcotic agent; Z88.8 Allergy status to other drugs, medicaments and biological substances; Z91.018 Allergy to other foods; Z91.040 Latex allergy status; Z79.01 Long term (current) use of anticoagulants; Z79.899 Other long term (current) drug therapy; W18.30XA Fall on same level, unspecified, initial encounter
CPT/HCPCS: 70450; 72125; 80053; 83690; 85025; 93005; 93010; 96372; 99285-25; J0780; J1200

== ENCOUNTER → 2023-04-13 | Outpatient (CLI) | payer MEDICARE, OTHER ==
[2023-04-13 17:13] LABS: Source, Urine Clean Catch
[2023-04-13 20:30] LABS: Appearance, Urine Hazy (Clear); Bilirubin, Urine Neg (Neg); Blood, Urine 1+ (Neg); Color, Urine Yellow (P-Yellow); Glucose Qualitative, Urine Neg (Neg); Ketones, Urine Neg (Neg); Leukocyte Esterase, Urine 3+ (Neg); Nitrite, Urine Neg (Neg); Protein, Urine 1+ (Neg); Urobilinogen, Urine NORM (Normal)
[2023-04-13 21:25] LABS: Bacteria Mod /hpf; Red Blood Cells, Urine 0-2 /hpf (0-2); Squamous Epithelial Cells Rare /hpf (Few); White Blood Cells, Urine 50-100 /hpf (0-5)
== END ==
LOC: LAB SHORT 17:10 → LAB 17:10
PROVIDERS: Internal Medicine
DX: R30.0 Dysuria (principal)
CPT/HCPCS: 81001; 87086

== ENCOUNTER 2023-06-18 09:56 | Emergency (ER) | payer MEDICARE, OTHER ==
[~2023-06-18] VITALS: Ht 160 cm; Wt 65.8 kg
[2023-06-18] MEDS ORDERED: OMEP20ER PO (10:13)
[2023-06-18] MEDS ORDERED: TOPI25 PO (10:15)
[2023-06-18 10:17] LABS: Source, Urine Straight Cath
[2023-06-18 10:28] LABS: Appearance, Urine Hazy (Clear); Bilirubin, Urine Neg (Neg); Blood, Urine 4+ (Neg); Color, Urine Yellow (P-Yellow); Glucose Qualitative, Urine Neg (Neg); Ketones, Urine 1+ (Neg); Leukocyte Esterase, Urine 3+ (Neg); Nitrite, Urine Neg (Neg); Protein, Urine 2+ (Neg); Urobilinogen, Urine NORM (Normal)
[2023-06-18 10:37] LABS: BASOPHILS ABSOLUTE AUTO 0.03 K/mm3 (0.00-0.23); BASOPHILS PERCENT AUTO 0 % (0-2); EOSINOPHILS ABSOLUTE AUTO 0.04 K/mm3 (0.00-0.68); EOSINOPHILS PERCENT AUTO 1 % (0-6); Hematocrit 37.4 % (33.0-51.0); Hemoglobin 12.1 g/dL (11.5-16.0); IMMATURE GRAN ABSOLUTE AUTO 0.02 K/mm3 (0.00-0.10); IMMATURE GRAN PERCENT AUTO 0 % (0-1); LYMPHOCYTES ABSOLUTE AUTO 1.69 K/mm3 (0.84-5.20); LYMPHOCYTES PERCENT AUTO 20 % (21-46); MONOCYTES PERCENT AUTO 5 % (4-13); Mean Corpuscular HGB 34.9 pg (26.0-34.0); Mean Corpuscular HGB Conc 32.4 g/dL (31.5-36.5); Mean Corpuscular Volume 108 fL (80-100); Mean Platelet Volume 9.2 fL (9.1-12.4); NEUTROPHILS ABSOLUTE AUTO 6.28 K/mm3 (1.96-9.15); NEUTROPHILS PERCENT AUTO 74 % (41-73); Platelet Count 163 K/mm3 (150-400); RDW Coefficient Variation 14.7 % (11.7-14.2); RDW Standard Deviation 58.7 fL (35.1-46.3); Red Blood Cell Count 3.47 M/mm3 (3.80-5.20); White Blood Cell Count 8.46 K/mm3 (4.00-11.30)
[2023-06-18 10:40] LABS: Bacteria Many /hpf; Squamous Epithelial Cells Rare /hpf (Few); White Blood Cells, Urine 50-100 /hpf (0-5)
[2023-06-18 11:10] LABS: Albumin, Blood 3.3 g/dL (3.4-5.0); Bilirubin, Total 0.4 mg/dL (0.1-1.0); Bun/Creatinine Ratio 13.1 (12.0-20.0); Calcium, Blood 8.3 mg/dL (8.5-10.1); Creatinine, Blood 1.07 mg/dL (0.40-1.00); Globulin, Blood 3.3 g/dL (2.2-4.0); Potassium, Blood 3.7 mmol/L (3.5-5.5); Total Protein, Blood 6.6 g/dL (6.4-8.2)
[2023-06-18] MEDS ORDERED: Pyridium200 MG PO (11:30)
[2023-06-18] MEDS ORDERED: Ampicillin Sod/Sulbactam Sod 3 GM in NS 100 ML IV ONE (11:30)
[2023-06-18] MEDS ORDERED: AMOCLA875 PO (11:30)
[2023-06-18] MEDS ORDERED: Diflucan150 MG PO (11:40)
[2023-06-18] MEDS ORDERED: Amoxicillin/Clavulanate K 875 MG Tab PO ONE (11:55)
[2023-06-18 12:24] VITALS: BP 145/71
== END 2023-06-18 12:31 | disposition home or self-care (01) ==
LOC: ER 09:56
PROVIDERS: Physician Assistant
DX: N39.0 Urinary tract infection, site not specified (principal); E78.5 Hyperlipidemia, unspecified; K21.9 Gastro-esophageal reflux disease without esophagitis; F31.9 Bipolar disorder, unspecified; J45.909 Unspecified asthma, uncomplicated; G47.30 Sleep apnea, unspecified; Z86.73 Personal history of transient ischemic attack (TIA), and cerebral infarction without residual deficits; G20.A1 Parkinson's disease without dyskinesia, without mention of fluctuations; I95.9 Hypotension, unspecified; E11.9 Type 2 diabetes mellitus without complications; M10.9 Gout, unspecified; I48.0 Paroxysmal atrial fibrillation; Z95.0 Presence of cardiac pacemaker; Z79.52 Long term (current) use of systemic steroids; Z79.899 Other long term (current) drug therapy; Z79.01 Long term (current) use of anticoagulants; Z88.1 Allergy status to other antibiotic agents; Z88.2 Allergy status to sulfonamides; Z88.5 Allergy status to narcotic agent; Z88.6 Allergy status to analgesic agent; Z88.8 Allergy status to other drugs, medicaments and biological substances; Z91.040 Latex allergy status; Z91.018 Allergy to other foods
CPT/HCPCS: 51701; 51798; 80053; 81001; 85025; 87086; 99283-25; A9270; J0295

== ENCOUNTER → 2023-09-04 | Outpatient (CLI) | payer MEDICARE, OTHER ==
[~2023-09-04] MED LIST changes: +AMOCLA875 PO; +Acetaminophen325 M1 PO; +BENZ100A PO; +CARB25 PO; +Diflucan150 MG PO; +FLUDROCORTISON0.1 MG PO; +FOLIC ACID0.4 MG; +MELA3; +NAC600 MG PO; +Nexium40 MG PO; +Pyridium200 MG PO; +SUCR1; +TOPI25; +TRAM50 PO; +VENL75ER PO; +Vitamin B-12100 MCG PO
== END | disposition home or self-care (01) ==
LOC: LAB 11:03 → LAB SHORT 11:03
DX: R82.998 Other abnormal findings in urine (principal)
CPT/HCPCS: 87086

== ENCOUNTER 2023-10-30 18:44 | Emergency (ER) | payer MEDICARE, OTHER ==
[~2023-10-30] VITALS: Ht 160 cm; Wt 65.3 kg
[~2023-10-30 18:44] MED LIST changes: -FOLIC ACID0.4 MG; +FOLIC ACID0.4 MG PO; -MELA3; +MELA3 PO; -TOPI25
[2023-10-30] MEDS ORDERED: VITAMIN D310 MC4 PO (19:09)
[2023-10-30] MEDS ORDERED: FentaNYL Citrate 50 MCG/ML 2 ML Injection IV ONE (19:45)
[2023-10-30] MEDS ORDERED: NS 1,000 ML IV SCH (19:45)
[2023-10-30] MEDS ORDERED: Ondansetron HCl 2 MG / ML 2ML Vial IV ONE (19:45)
[2023-10-30 20:04] LABS: BASOPHILS ABSOLUTE AUTO 0.02 K/mm3 (0.00-0.23); BASOPHILS PERCENT AUTO 0 % (0-2); EOSINOPHILS ABSOLUTE AUTO 0.04 K/mm3 (0.00-0.68); EOSINOPHILS PERCENT AUTO 1 % (0-6); Hematocrit 35.5 % (33.0-51.0); Hemoglobin 11.5 g/dL (11.5-16.0); IMMATURE GRAN ABSOLUTE AUTO 0.02 K/mm3 (0.00-0.10); IMMATURE GRAN PERCENT AUTO 0 % (0-1); LYMPHOCYTES ABSOLUTE AUTO 1.33 K/mm3 (0.84-5.20); LYMPHOCYTES PERCENT AUTO 25 % (21-46); MONOCYTES ABSOLUTE AUTO 0.37 K/mm3 (0.16-1.47); MONOCYTES PERCENT AUTO 7 % (4-13); Mean Corpuscular HGB 34.3 pg (26.0-34.0); Mean Corpuscular HGB Conc 32.4 g/dL (31.5-36.5); Mean Corpuscular Volume 106 fL (80-100); Mean Platelet Volume 10.3 fL (9.1-12.4); NEUTROPHILS ABSOLUTE AUTO 3.63 K/mm3 (1.96-9.15); NEUTROPHILS PERCENT AUTO 67 % (41-73); Platelet Count 159 K/mm3 (150-400); RDW Coefficient Variation 11.9 % (11.7-14.2); RDW Standard Deviation 46.5 fL (35.1-46.3); Red Blood Cell Count 3.35 M/mm3 (3.80-5.20); White Blood Cell Count 5.41 K/mm3 (4.00-11.30)
[2023-10-30 20:13] LABS: Albumin, Blood 3.3 g/dL (3.4-5.0); Bilirubin, Total 0.3 mg/dL (0.1-1.0); Bun/Creatinine Ratio 10.8 (12.0-20.0); Calcium, Blood 8.4 mg/dL (8.5-10.1); Creatinine, Blood 1.11 mg/dL (0.40-1.00); Globulin, Blood 3.3 g/dL (2.2-4.0); Potassium, Blood 3.4 mmol/L (3.5-5.5); Total Protein, Blood 6.6 g/dL (6.4-8.2)
[2023-10-30] MEDS ORDERED: MethylPREDNISolone Sod Succ 125 MG Vial IV ONE (20:30)
[2023-10-30] MEDS ORDERED: DiphenhydrAMINE HCl 50 MG/ML 1ML Vial IV ONE (20:30)
[2023-10-30 20:32] LABS: Source, Urine Clean Catch
[2023-10-30 20:40] LABS: Appearance, Urine Hazy (Clear); Bilirubin, Urine Neg (Neg); Blood, Urine 1+ (Neg); Glucose Qualitative, Urine 1+ (Neg); Ketones, Urine Neg (Neg); Leukocyte Esterase, Urine 3+ (Neg); Nitrite, Urine Neg (Neg); Protein, Urine Neg (Neg); Urobilinogen, Urine NORM (Normal)
[2023-10-30 21:02] LABS: Color, Urine Pale Yellow (P-Yellow)
[2023-10-30 21:05] LABS: Red Blood Cells, Urine 0-2 /hpf (0-2); White Blood Cells, Urine 25-50 /hpf (0-5)
[2023-10-30 21:06] LABS: Bacteria Mod /hpf; Squamous Epithelial Cells Rare /hpf (Few)
[2023-10-30] MEDS ORDERED: Nexium40 MG PO (21:52)
[2023-10-30] MEDS ORDERED: CARBLEV25 SL (21:53)
[2023-10-30] MEDS ORDERED: OXYC5 PO (21:54)
[2023-10-30] MEDS ORDERED: Mag Hydrox/AL Hydrox/Simeth 30 ML UDC PO ONE (21:55)
[2023-10-30] MEDS ORDERED: RX Prepack 6 Tabs Oxycodone 5mg UD ONE (21:55)
[2023-10-30] MEDS ORDERED: Atropine/Scopalam/Hyoscam/PB 5 ML UDC PO ONE (21:55)
[2023-10-30] MEDS ORDERED: Amoxicillin/Clavulanate K 875 MG Tab PO ONE (21:55)
[2023-10-30] MEDS ORDERED: Lidocaine 2% Viscous Soln 15 ML UDC PO ONE (21:55)
[2023-10-30] MEDS ORDERED: QUET25 PO (21:57)
[2023-10-30] MEDS ORDERED: AMOCLA875 PO (22:03)
[2023-10-30 23:05] VITALS: BP 127/82
== END 2023-10-30 23:15 | disposition home or self-care (01) ==
LOC: ER 18:44
PROVIDERS: Emergency Medicine
DX: K57.32 Diverticulitis of large intestine without perforation or abscess without bleeding (principal); N39.0 Urinary tract infection, site not specified; Z88.2 Allergy status to sulfonamides; Z88.1 Allergy status to other antibiotic agents; Z88.5 Allergy status to narcotic agent; Z79.899 Other long term (current) drug therapy; M10.9 Gout, unspecified; E78.5 Hyperlipidemia, unspecified; K21.9 Gastro-esophageal reflux disease without esophagitis; I10 Essential (primary) hypertension; E11.9 Type 2 diabetes mellitus without complications; G47.30 Sleep apnea, unspecified
CPT/HCPCS: 74177; 80053; 81001; 83690; 85025; 93005; 93010; 96361; 96374-59; 96375; 99284-25; A9270; J1200; J2405; J2919; J3010; J7030; Q9967

== ENCOUNTER → 2023-11-18 | Outpatient (CLI) | payer MEDICARE, OTHER ==
[~2023-11-18] MED LIST changes: +CARBLEV25 SL; +VITAMIN D310 MC4 PO
== END ==
LOC: LAB SHORT 14:33 → LAB 14:33
DX: N39.0 Urinary tract infection, site not specified (principal)
CPT/HCPCS: 87086

== ENCOUNTER → 2023-12-29 | Outpatient (CLI) | payer MEDICARE, OTHER ==
[2023-12-29 13:26] LABS: Source, Urine Voided
[2023-12-29 14:11] LABS: Appearance, Urine Clear (Clear); Bilirubin, Urine Neg (Neg); Blood, Urine Neg (Neg); Glucose Qualitative, Urine Neg (Neg); Ketones, Urine Neg (Neg); Leukocyte Esterase, Urine Neg (Neg); Nitrite, Urine Neg (Neg); Protein, Urine Neg (Neg); Urobilinogen, Urine NORM (Normal)
[2023-12-29 14:19] LABS: Color, Urine Pale Yellow (P-Yellow)
== END ==
LOC: LAB 13:23 → LAB SHORT 13:23
PROVIDERS: Internal Medicine
DX: N39.0 Urinary tract infection, site not specified (principal)
CPT/HCPCS: 81003

== ENCOUNTER → 2024-01-08 | Outpatient (CLI) | payer MEDICARE, OTHER ==
[2024-01-08 16:16] LABS: Source, Urine Clean Catch
[2024-01-08 17:59] LABS: Appearance, Urine Clear (Clear); Bilirubin, Urine Neg (Neg); Blood, Urine Neg (Neg); Color, Urine Yellow (P-Yellow); Glucose Qualitative, Urine Neg (Neg); Ketones, Urine Neg (Neg); Leukocyte Esterase, Urine Neg (Neg); Nitrite, Urine Neg (Neg); Protein, Urine Neg (Neg); Urobilinogen, Urine NORM (Normal)
== END | disposition home or self-care (01) ==
LOC: LAB SHORT 16:11 → LAB 16:11
PROVIDERS: Internal Medicine
DX: N39.0 Urinary tract infection, site not specified (principal)
CPT/HCPCS: 81003

== ENCOUNTER 2024-02-10 04:59 | Day surgery (SDC) | payer MEDICARE, OTHER ==
[~2024-02-10] VITALS: Ht 160 cm; Wt 69.2 kg
[~2024-02-10 04:59] MED LIST changes: +ALUM-MAG HYDROX30 M1; +BENZONATATE100 MG PO; +Calcium Carbon500 MG; +Fiber625 MG PO; +LACTASE FAS9000 UNI1; +MILK OF MAGNESIA; +MUCINEX SINUS; +NARCAN4 M1; +ONDA4ODT; +PREG25 PO; +SENNA LAXATIVE8.6 MG PO; +SEROQUEL25 MG PO; +[UNRECOGNIZED DRUG - OTHER]
[2024-02-10] MEDS ORDERED: Tetracaine HCl/Pf 0.5% Opth Soln 4 ml ONE (06:06)
[2024-02-10] MEDS ORDERED: NS 500 ML IV ONE (06:06)
[2024-02-10] MEDS ORDERED: Povidone-Iodine 450 DROP/30 ML Solution ONE (06:06)
[2024-02-10] MEDS ORDERED: Triamcinolone Inj Susp 40 MG / ML 1ML Vial ONE (06:42)
[2024-02-10] MEDS ORDERED: Lidocaine HCl/Pf 1% 5 ML VIAL ONE (06:42)
[2024-02-10] MEDS ORDERED: FentaNYL Citrate 50 MCG/ML 2 ML Injection ONE (06:49)
[2024-02-10] MEDS ORDERED: Midazolam HCl 1MG / ML 2ML Vial ONE (06:49)
[2024-02-10] MEDS ORDERED: Dextrose 50% 50 ML Syringe IV ONE (07:01)
[2024-02-10] MEDS ORDERED: NS 1,000 ML IV ONE (07:06)
--- NOTE | 2024-02-10 07:14 | NUR ---
02/10/24 0714 Apolonia Post 05/19 AMP DEXTROSE IV ADMINISTERED FOR CBG OF [address] CAMPOS. PT COMPLAINED OF DISCOMFORT NEAR THE IV SITE. SITE APPEARED PINK NEAR THE SITE OF INSERTION; PAINFUL BUT NOT SWOLLEN. IV FLUSHES WELL AND DRAWS BACK BLOOD WITHOUT RESISTANCE. RN WILL MONITOR SITE AND PT'S REACTION.
[2024-02-10] MEDS ORDERED: Triamcinolone Acetonide/Pf 40 MG/ML Susp (1ML) IO ONE (07:40)
[2024-02-10 08:25] VITALS: BP 154/71
--- NOTE | 2024-02-10 08:26 | NUR ---
02/10/[address] NOTIFIED OF CBG RESULTS.
[2024-02-11] MEDS ORDERED: Balanced Salt Epinephrine Irrigation Solution 500 mL IR SCH (06:00)
[2024-02-11] MEDS ORDERED: Triamcinolone Inj Susp 40 MG / ML 1ML Vial INJ SCH (06:00)
[2024-02-11] MEDS ORDERED: PHENYLEPHRINE\\TROPICAMIDE\\TETRACAINE OPHTHALMIC DILATING SOLN LEFTEYE PRN (06:00)
[2024-02-11] MEDS ORDERED: Lidocaine HCl/Pf 1% 5 ML VIAL XX SCH (06:00)
[2024-02-11] MEDS ORDERED: Povidone-Iodine 450 DROP/30 ML Solution LEFTEYE SCH (06:00)
[2024-02-11] MEDS ORDERED: Moxifloxacin HCL 0.5 MG/0.1 ML 0.4MLSYR LEFTEYE SCH (06:00)
== END 2024-02-10 08:23 | disposition home or self-care (01) ==
LOC: ORSCSDS 04:59
PROVIDERS: Ophthalmology
PROC: 08RK3JZ Replacement of Left Lens with Synthetic Substitute, Percutaneous Approach (ICD-10-PCS; principal; 2024-02-10 07:30)
DX: E11.36 Type 2 diabetes mellitus with diabetic cataract (principal); H25.812 Combined forms of age-related cataract, left eye; Z96.1 Presence of intraocular lens; I10 Essential (primary) hypertension; I21.9 Acute myocardial infarction, unspecified; Z86.73 Personal history of transient ischemic attack (TIA), and cerebral infarction without residual deficits; J45.909 Unspecified asthma, uncomplicated; Z95.0 Presence of cardiac pacemaker; Z79.01 Long term (current) use of anticoagulants; Z79.899 Other long term (current) drug therapy
CPT/HCPCS: 82947; J2001; J2250; J3010; J3300; J3301; J7040; V2632

== ENCOUNTER 2024-02-28 22:26 | Inpatient (IN) | payer MEDICARE, OTHER ==
[~2024-02-28] VITALS: Ht 160 cm; Wt 70.6 kg
[~2024-02-28 22:26] MED LIST changes: -ALUM-MAG HYDROX30 M1; +ALUM-MAG HYDROX30 M1 PO; -Acetaminophen325 M1 PO; +CARBLEV25 PO; -CARBLEV25 SL; -Calcium Carbon500 MG; +Cortef5 MG PO; +FOLI1 PO; -FOLIC ACID0.4 MG PO; -LACTASE FAS9000 UNI1; +LACTASE FAS9000 UNI1 PO; -MELA3 PO; +MELATONIN10 M1 PO; -MILK OF MAGNESIA; +MILK OF MAGNESIA PO; -MUCINEX SINUS; -ONDA4ODT; -PREG25 PO; +PREG50 PO; +TOPI50 PO; -VITAMIN D310 MC4 PO; +VITAMIN D5000 UNIT PO
[2024-02-28] MEDS ORDERED: Ondansetron HCl 2 MG / ML 2ML Vial IV PRN (22:55)
[2024-02-28 22:59] LABS: BASOPHILS ABSOLUTE AUTO 0.04 K/mm3 (0.00-0.23); BASOPHILS PERCENT AUTO 0 % (0-2); EOSINOPHILS PERCENT AUTO 2 % (0-6); Hematocrit 38.4 % (33.0-51.0); Hemoglobin 12.4 g/dL (11.5-16.0); IMMATURE GRAN ABSOLUTE AUTO 0.06 K/mm3 (0.00-0.10); IMMATURE GRAN PERCENT AUTO 1 % (0-1); LYMPHOCYTES ABSOLUTE AUTO 2.05 K/mm3 (0.84-5.20); LYMPHOCYTES PERCENT AUTO 18 % (21-46); MONOCYTES ABSOLUTE AUTO 0.48 K/mm3 (0.16-1.47); MONOCYTES PERCENT AUTO 4 % (4-13); Mean Corpuscular HGB 34.1 pg (26.0-34.0); Mean Corpuscular HGB Conc 32.3 g/dL (31.5-36.5); Mean Corpuscular Volume 106 fL (80-100); Mean Platelet Volume 9.2 fL (9.1-12.4); NEUTROPHILS ABSOLUTE AUTO 8.74 K/mm3 (1.96-9.15); NEUTROPHILS PERCENT AUTO 76 % (41-73); Platelet Count 254 K/mm3 (150-400); RDW Coefficient Variation 13.4 % (11.7-14.2); RDW Standard Deviation 51.8 fL (35.1-46.3); Red Blood Cell Count 3.64 M/mm3 (3.80-5.20); White Blood Cell Count 11.57 K/mm3 (4.00-11.30)
[2024-02-28 23:26] LABS: Albumin, Blood 3.9 g/dL (3.4-5.0); Albumin/Globulin Ratio 1.1 (0.8-1.8); Bilirubin, Total 0.4 mg/dL (0.1-1.0); Bun/Creatinine Ratio 20.4 (12.0-20.0); Calcium, Blood 9.2 mg/dL (8.5-10.1); Creatinine, Blood 1.03 mg/dL (0.40-1.00); Globulin, Blood 3.7 g/dL (2.2-4.0); Potassium, Blood 3.8 mmol/L (3.5-5.5); Total Protein, Blood 7.6 g/dL (6.4-8.2)
[2024-02-29 02:24] LABS: Source, Urine Clean Catch
[2024-02-29 02:29] LABS: Bilirubin, Urine Neg (Neg); Blood, Urine 1+ (Neg); Glucose Qualitative, Urine Neg (Neg); Ketones, Urine Neg (Neg); Leukocyte Esterase, Urine 1+ (Neg); Nitrite, Urine Neg (Neg); Protein, Urine Neg (Neg); Urobilinogen, Urine NORM (Normal)
[2024-02-29 02:40] LABS: Appearance, Urine Clear (Clear); Color, Urine Yellow (P-Yellow)
[2024-02-29 02:41] LABS: Bacteria Not Seen /hpf; Red Blood Cells, Urine 0-2 /hpf (0-2); Squamous Epithelial Cells Rare /hpf (Few); White Blood Cells, Urine 0-2 /hpf (0-5)
[2024-02-29] MEDS ORDERED: FentaNYL Citrate 50 MCG/ML 2 ML Injection IV ONE (05:35)
[2024-02-29] MEDS ORDERED: FentaNYL Citrate 50 MCG/ML 2 ML Injection IV PRN (05:40)
[2024-02-29] MEDS ORDERED: NS 1,000 ML IV ONE (05:40)
[2024-02-29] MEDS ORDERED: FLU VACC TS2024-25(6MOS UP)/PF 45 MCG/0.5 ML SYRINGE IM ONE (05:40)
[2024-02-29] MEDS ORDERED: Ondansetron HCl 2 MG / ML 2ML Vial IV PRN (05:40)
--- NOTE | 2024-02-29 07:15 | NUR ---
PATIENT ADMITTED FROM ED. REPORT RECEIVED FROM HARSHAL GUAMAN. NG TUBE WAS ACCIDENTLY REMOVED AND PATIENT IS REFUSING TO HAVE IT REPLACED. DR DSOUZA NOTIFIED OF SURGICAL CONSULT. PATIENT ORIENTED TO ROOM AND USE OF CALL LIGHT. REPORTS PAIN IS CONTROLLED AND DENIES ANY NAUSEA AT THIS TIME. PATIENT ABLE TO TRANSFER WITH SBA TO BED. BED ALARM SET FOR SAFETY AND CALL LIGHT WITHIN REACH.
[2024-02-29 07:31] VITALS: BP 152/73
[2024-02-29] MEDS ORDERED: Hydrocortisone Sod Succinate 100 MG Vial IV SCH (09:00)
[2024-02-29] MEDS ORDERED: SUCR1 PO (10:49)
[2024-02-29] MEDS ORDERED: TRAM50 PO (10:52)
[2024-02-29] MEDS ORDERED: LORazepam 2 MG/ML 1ML Injection IV PRN (12:20)
[2024-02-29] MEDS ORDERED: Levodopa/Carbidopa 100 / 25 MG Tab PO SCH (14:00)
[2024-02-29 14:23] VITALS: BP 159/65
--- NOTE | 2024-02-29 14:25 | NUR ---
"Spiritual Care | Pt. request Pt. is awake in bed when she welcomes my visit. Pt. is experienceing visceral pain, and requested Prayer. After a short life review I prayed with the Pt. Pt. verbalized gratitude for the spiritual care visit and welcomed this front end engineer to return."
[2024-02-29] MEDS ORDERED: HYDROmorphone HCl/Pf 1MG SYR IV ONE (16:00)
[2024-02-29] MEDS ORDERED: Prochlorperazine Edisylate 10 mg Vial IV ONE (16:00)
--- NOTE | 2024-02-29 18:33 | NUR ---
PATIENT A/OX4, ABLE TO TRANSFER WITH SBA. PATIENT ADMITTED THIS AM AND NG TUBE WAS ACCIDENTLY PULLED IN ED. PATIENT REFUSED TO HAVE NG TUBE REPLACED. EDUCATED PATIENT MULTIPLE TIMES ABOUT PLACING NG TUBE FOR SYMPTOM RELIEF. MEDICATED WITH ZOFRAN, COMPAZINE AND DILAUDID WITH MINIMAL RELIEF. DR DSOUZA IN THIS EVENING AND PATIENT NOW AGREEABLE TO HAVE NG TUBE PLACED. PATIENT REMAINS NPO. CALLS APPRORPRIATELY AND ABLE TO MAKE NEEDS KNOWN.
[2024-02-29] MEDS ORDERED: HYDROmorphone HCl/Pf 1MG SYR IV PRN (20:00)
[2024-02-29 20:41] VITALS: BP 161/71
[2024-02-29] MEDS ORDERED: QUEtiapine Fumarate 25 MG Tab PO SCH (21:00)
[2024-02-29] MEDS ORDERED: Topiramate 100 MG Tab PO SCH (21:00)
[2024-02-29] MEDS ORDERED: Gabapentin 300 MG Cap PO SCH (21:00)
[2024-02-29] MEDS ORDERED: Pregabalin 25 MG Capsule PO SCH (21:00)
[2024-02-29] MEDS ORDERED: Mirtazapine 15 MG SoluTab PO SCH (21:00)
[2024-03-01 05:12] VITALS: BP 179/84
--- NOTE | 2024-03-01 05:52 | NUR ---
ELEVATOR WORKER SUMMARY NG TUBE PLACED AT THE END OF DAY SHIFT AT 1845. IMMEDIATE HIGH OUTPUT OF STOMACH CONTENTS. PT HAS HAD 650CC OF GREEN OUTPUT SINCE THEN. PT WAS NOTED TO BE SCRATCHING AT HER NG TUBE AROUND 0430 (RE-EDUCATED) AND HER NG OUTPUT STARTED TO DECREASE AROUND 0500 SO WE ORDERED A CHEST X RAY TO CONFIRM PLACEMENT AND SEE IF WE NEED TO ADVANCE THE TUBE A BIT. QUESTIONS FOR DAY SHIFT MD (WILL PASS ON TO DAY SHIFT RN) 1. IV FLUID ORDER HAS AND PT IS NPO. MORE IVF? 2. DO WE NEED BLOOD SUGAR CHECKS Q6?
[2024-03-01 07:16] VITALS: BP 172/80
[2024-03-01 07:18] LABS: BASOPHILS ABSOLUTE AUTO 0.03 K/mm3 (0.00-0.23); BASOPHILS PERCENT AUTO 0 % (0-2); EOSINOPHILS ABSOLUTE AUTO 0.06 K/mm3 (0.00-0.68); EOSINOPHILS PERCENT AUTO 1 % (0-6); Hematocrit 35.5 % (33.0-51.0); Hemoglobin 11.2 g/dL (11.5-16.0); IMMATURE GRAN ABSOLUTE AUTO 0.08 K/mm3 (0.00-0.10); IMMATURE GRAN PERCENT AUTO 1 % (0-1); LYMPHOCYTES ABSOLUTE AUTO 2.04 K/mm3 (0.84-5.20); LYMPHOCYTES PERCENT AUTO 28 % (21-46); MONOCYTES ABSOLUTE AUTO 0.52 K/mm3 (0.16-1.47); MONOCYTES PERCENT AUTO 7 % (4-13); Mean Corpuscular HGB 33.6 pg (26.0-34.0); Mean Corpuscular HGB Conc 31.5 g/dL (31.5-36.5); Mean Corpuscular Volume 107 fL (80-100); Mean Platelet Volume 9.9 fL (9.1-12.4); NEUTROPHILS ABSOLUTE AUTO 4.55 K/mm3 (1.96-9.15); NEUTROPHILS PERCENT AUTO 63 % (41-73); Platelet Count 248 K/mm3 (150-400); RDW Coefficient Variation 13.8 % (11.7-14.2); Red Blood Cell Count 3.33 M/mm3 (3.80-5.20); White Blood Cell Count 7.28 K/mm3 (4.00-11.30)
[2024-03-01 07:49] LABS: Albumin, Blood 3.4 g/dL (3.4-5.0); Albumin/Globulin Ratio 0.9 (0.8-1.8); Bilirubin, Total 0.9 mg/dL (0.1-1.0); Calcium, Blood 8.4 mg/dL (8.5-10.1); Globulin, Blood 3.6 g/dL (2.2-4.0); Potassium, Blood 4.1 mmol/L (3.5-5.5)
[2024-03-01] MEDS ORDERED: Fludrocortisone Acetate 0.1 MG Tab PO SCH (09:00)
[2024-03-01] MEDS ORDERED: NS 1,000 ML IV SCH (09:00)
[2024-03-01] MEDS ORDERED: Venlafaxine HCl 75 MG CapCR PO SCH (09:00)
[2024-03-01] MEDS ORDERED: Venlafaxine HCl 25 MG Tab PO SCH (09:40)
[2024-03-01 15:19] VITALS: BP 139/76
[2024-03-01] MEDS ORDERED: DiphenhydrAMINE HCl 50 MG/ML 1ML Vial IV PRN (16:45)
[2024-03-01] MEDS ORDERED: TOPI100 PO (16:46)
[2024-03-01] MEDS ORDERED: OXYC5 PO (16:52)
--- NOTE | 2024-03-01 17:58 | NUR ---
PATIENT A/OX4, UP TO RESTROOM AND WALKED IN HALLS TODAY WITH FWW AND SBA. NG TUBE TO LIS, OUTPUT 500ML'S THIS SHIFT. REPORTS BETTER PAIN CONTROL WITH DILAUDID 1MG Q4 HOURS. BENADRYL ORDERED FOR ITCHING WITH STATED RELIEF. BOWEL TONES RARE, DENIES PASSING GAS. CALM AND COOPERATIVE WTIH CARE, ABLE TO MAKE NEEDS KNOWN.
[2024-03-01 20:14] VITALS: BP 192/85
[2024-03-02] VITALS (8 sets, daily range): BP systolic 142–194; BP diastolic 75–96
[2024-03-02] MEDS ORDERED: Calcium Carbonate 500 MG Tab Chew PO PRN (03:35)
[2024-03-02] MEDS ORDERED: HydrALAZINE HCl 20 MG / ML 1ML Vial IV PRN (04:30)
--- NOTE | 2024-03-02 05:32 | NUR ---
WARE CLEANER SUMMARY 300 OUT FROM NG TUBE. COLOR IS MUCH ELECTRICAL INSPECTOR THAN YESTERDAY. PT DID PASS GAS THIS MORNING FOR THE FIRST TIME. PT IS STILL INTERMITTENTLY MISERABLE, CALLING AND ASKING FOR NAUSEA MEDS AND PAIN MEDS WHEN THEY WEAR OFF.
[2024-03-02 05:43] LABS: Hematocrit 33.9 % (33.0-51.0); Hemoglobin 10.6 g/dL (11.5-16.0); Mean Corpuscular HGB 33.1 pg (26.0-34.0); Mean Corpuscular HGB Conc 31.3 g/dL (31.5-36.5); Mean Corpuscular Volume 106 fL (80-100); Mean Platelet Volume 9.5 fL (9.1-12.4); Platelet Count 231 K/mm3 (150-400); RDW Coefficient Variation 13.6 % (11.7-14.2); RDW Standard Deviation 52.7 fL (35.1-46.3); White Blood Cell Count 6.75 K/mm3 (4.00-11.30)
[2024-03-02 06:09] LABS: Albumin, Blood 3.4 g/dL (3.4-5.0); Anion Gap 12 mmol/L (3-11); Blood Urea Nitrogen 23 mg/dL (8-24); Bun/Creatinine Ratio 23.5 (12.0-20.0); CO2, Blood 22 mmol/L (21-32); Calcium, Blood 8.9 mg/dL (8.5-10.1); Chloride, Blood 114 mmol/L (98-108); Creatinine, Blood 0.98 mg/dL (0.40-1.00); Glomerular Filtration Rate 60 (60-); Glucose, Blood 159 mg/dL (70-99); Magnesium, Blood 2.3 mg/dL (1.6-2.4); Phosphorus, Blood 3.1 mg/dL (2.5-4.9); Potassium, Blood 4.1 mmol/L (3.5-5.5); Sodium, Blood 144 mmol/L (136-145)
[2024-03-02] MEDS ORDERED: QUEtiapine Fumarate 25 MG Tab PO PRN (13:10)
[2024-03-02] MEDS ORDERED: OxyCODONE HCL 5 MG TAB PO SCH (14:00)
--- NOTE | 2024-03-02 16:34 | NUR ---
Pt. is awake in bed when she welcomes my visit. Pt. is pleasant. Facilitated a personal assesment of her progress. Pt. reports an expectation to go home tomorrow or Thursday. Listen with interest and empathy and also seek to nomralize the Pt. experience. Consider matters of gardenia and belief. Pt. displays evidence of engagement, awareness, and motivation to get stronger in able to go home, Prayed with the Pt. and the Pt. prayed with me. Pt. verbalzied gratitude for the spiritual care visit and welcmoed this safety director to return.
--- NOTE | 2024-03-02 17:19 | NUR ---
PATIENT A/O4, WALKED IN HALLS WITH FWW AND SBA. NG TUBE IN PLACE TO LIS. PATIENT PASSING GAS AND REPORTS PAIN AND NAUSEA HAS IMPROVED. DILAUDID AND ZOFRAN GIVEN X1. HOME MEDICATIONS GIVEN AND NG CLAMPED FOR 30 MINUTES EACH TIME AND PATIENT TOLERATED WELL. SKIN INTACT. POWERGLIDE TO AIYANA, NS @ 50ML/HR INFUSING. NO NEW CONCERNS THIS SHIFT
[2024-03-02] MEDS ORDERED: Pregabalin 50 MG Capsule PO SCH (21:00)
[2024-03-02] MEDS ORDERED: Melatonin 5 MG Tablet PO SCH (21:00)
[2024-03-03 04:03] VITALS: BP 195/84
--- NOTE | 2024-03-03 06:25 | NUR ---
SHIFT SUMMARY: Pt is admitted for small bowel obstruction and is a DNR. is alert and able to make needs known. ADLs have been mainly 1p. Pain has been managed with PRN pain medication. Alejandro reports sinus in the 70s. She pulled her power glide to upper right arm. She states she is not sure how it got started but when she noticed it she finished pulling it out. Unable to find any sites for normal iv placement and had an ICU nurse replace the power glide. The NG tube also became dislodged and she stated that she helped it finish it s removal. After 4 attempts to replace the NG tube and not being able to get it placed she declined any further tries. was made aware.
[2024-03-03 07:26] VITALS: BP 187/88
[2024-03-03 08:47] VITALS: BP 159/74
[2024-03-03] MEDS ORDERED: Topiramate 25 MG Tab PO SCH (09:00)
[2024-03-03] MEDS ORDERED: AmLODIPine Besylate 5 MG Tab PO SCH (09:30)
--- NOTE | 2024-03-03 09:31 | NUR ---
PT HYPERTENSIVE, NO HOME BP MED ON MED REC. IV HYDRALIZINE GIVEN, SBP DROPPED FROM 187 TO 159, DR. BOURNE NOTIFIED. PLS SEE UPDATED ORDERS
--- NOTE | 2024-03-03 11:13 | NUR ---
NURSING NOTE: CONTACTED DR DSOUZA ABOUT NGT REMOVAL AND FURTHER PLAN. INSTRUCTED TO LET PT REST AND ONLY REPLACE NGT IF PT IS NAUSEOUS OR VOMITTING. PT DENIES ANY DISCOMFORT, IS CURRENTLY SLEEPING IN BED.
[2024-03-03 14:40] VITALS: BP 174/77
[2024-03-03] MEDS ORDERED: Famotidine 10 MG/ML 2ML Vial IV SCH ×3 (16:10→16:17)
--- NOTE | 2024-03-03 17:25 | NUR ---
SHIFT SUMMARY: PT AOX4 WITH A LOT OF ABDOMINAL DISCOMFORT. NO NAUSEA, BUT COMPLAINS OF SOME GERD AND INDIGESTIONS. MEDICATED PER EMR. CALLED DR. DSOUZA ABOUT THE NGT BEING REMOVED AND FAILURE TO PLACE IT IN A FEW ATTEMPTS. TOLD TO LEAVE IT OUT UNLESS PT EXPERIENCES VOMITTING OR NAUSEA. PT COMPLAINS OF SOME ANXIETY AND PAIN MEDICATED PER EMR. HAS BEEN TAKING PO MEDS CRUSHED OR WHOLE IN [place] PUDDING. TOLERATING THE SWALLOWING AND PILLS WELL. CURRENTLY SLEEPING UPRIGHT IN BED ON RA. HAS AMBULATED ONE PERSON STANDBY TO BEDSIDE COMMODE. BED IN LOWEST POSITION AND CALL LIGHT IN REACH. CONTINUING CARE.
[2024-03-03 21:50] VITALS: BP 143/115
[2024-03-03 22:01] VITALS: BP 159/77
[2024-03-04 04:36] VITALS: BP 159/70
--- NOTE | 2024-03-04 06:48 | NUR ---
SHIFT SUMMARY: Pt is admitted for small bowel obstruction and is a DNR. is alert and able to make needs known. ADLs have been mainly 1p. Pain has been managed with PRN pain medication. Alejandro reports a-paced in the 60s. Had an episode of apneia where biox was noted down to 40% pt was woken up and she started to breath normal and SPO2 recovered with out issue.
[2024-03-04 07:19] VITALS: BP 156/63
[2024-03-04] MEDS ORDERED: Sod Phosphate/Sod Biphosphate 132 ML BTL PR ONE (08:35)
[2024-03-04] MEDS ORDERED: Magnesium Hydroxide Conc 10 ML UDC PO SCH (09:00)
[2024-03-04] MEDS ORDERED: Famotidine 10 MG/ML 2ML Vial IV SCH ×2 (09:00→21:00)
[2024-03-04] MEDS ORDERED: OxyCODONE HCL 5 MG TAB PO PRN (12:00)
[2024-03-04] MEDS ORDERED: LORazepam 0.5 MG Tab PO SCH (14:10)
[2024-03-04 14:33] VITALS: BP 155/67
--- NOTE | 2024-03-04 16:52 | NUR ---
SHIFT SUMMARY: PT AOX4 IN THE MORNING. DISCUSSED WITH DR BOURNE ABOUT PLAN. STARTING WITH SHIFTING DIET TO CLEAR LIQUIDS AND ESCALATING DIET TOLERATED. HAD AN EPISODE OF CHEST PAIN RADIATING TO BACK. EKG PERFORMED AND UNREMARKABLE. MEDICATED PER EMR. DAUGHTER UPDATED BY DR BOURNE AND WAS IN THE HOSPITAL AND TALKED TO BY RN. ENEMA GIVEN PER ORDERS AND PT DID HAVE ONE LARGE BM AND SEVERAL SMALL ONES THROUGH OUT THE SHIFT. ONE PERSON STANDBYS TO THE BSC. TOLERATING FULL LIQUID DIET AND HAS BEEN MEDICATED FOR SOME HEART BURN, PAIN, AND ANXIETY PER EMR. TRANSFERRED TO ANOTHER ROOM ON THE UNIT @1648, REPORT GIVEN TO OTHER NURSE, PT AMBULATED TO THEIR NEW ROOM. ORIENTED TO ROOM AND BELONGINGS BROUGHT WITH HER. PT CURRENTLY RESTING IN BED, BED IN LOWEST POSITION AND CALL LIGHT IS IN REACH. CONTINUING CARE.
--- NOTE | 2024-03-04 17:06 | NUR ---
SHIFT SUMMARY PT TRANSFERED FROM ROOM 313 THIS SHIFT TO ROOM 324. PT IS A&OX4 WITH INTERMITTEN CONFUSION NOTED. PT IS ASSIST X1 WITH TRANSFERS. PT ORINTATED TO ROOM WITH NO CONCERNS NOTED AT THIS TIME PT IS TO ADVANCE TO A FULL LIQUID DIET TO START TOMORROW.
[2024-03-04 20:14] VITALS: BP 163/91
[2024-03-04] MEDS ORDERED: Hydrocortisone 10 MG Tab PO SCH (21:00)
--- NOTE | 2024-03-05 03:00 | NUR ---
SHIFT SUMMARY: PT ALERT ORIENTED X 4 WITH SOME FORGETFULNESS ABLE TO VERBALIZE NEEDS AND CALL FOR HELP. SBA WITH WALKER AND AMBULATES TO BATHROOM. POWER GLIDE INTACT TO RT UPPER ARM WITH NS AT 50. VSS ON RA SATTING AT 99%. CONTINUES ON CONTINUOUS PULSE OX. NO C/O CHEST PAIN BUT DOES HAVE INDIGESTION WHICH THE PEPCID SEEMED TO HELP. NO C/O ABD PAIN OR N/V. SHE STATED THAT SHES HAVING NORMAL BMS AND IS PASSING GAS. NO C/O PAIN THIS SHIFT. RESTING IN BED AT THIS TIME.
[2024-03-05 04:56] VITALS: BP 157/77
[2024-03-05 07:50] VITALS: BP 176/132
[2024-03-05 07:52] VITALS: BP 170/68
[2024-03-05] MEDS ORDERED: Aspirin 81 MG Chew PO SCH (09:00)
[2024-03-05 15:25] VITALS: BP 169/61
--- NOTE | 2024-03-05 17:09 | NUR ---
SHIFT SUMMARY PT CONT WITH LEVEL OF CARE WITH NO ACUTE CHANGES NOTED. PT NOTED TO VOICE C/O ACID REFLUX AND HEART BURN PRN TUMS ADMINISTERED. PT NOTED TO HAVE SOME NAUSEA PRN ZOFRAN GIVEN WITH EFFECTIVENESS. PT NOTED TO PASS GAS AND HAVE A BOWEL MOVEMENT THIS MORNING. PLAN IS FOR PT TO POSSIBLE DC TOMORROW.
[2024-03-05 19:22] VITALS: BP 181/96
[2024-03-05 20:14] VITALS: BP 160/77
[2024-03-05] MEDS ORDERED: Apixaban 5 MG Tab PO SCH (21:00)
[2024-03-05] MEDS ORDERED: Famotidine 20 MG Tab PO SCH (21:00)
[2024-03-06 04:29] VITALS: BP 138/82
[2024-03-06 05:01] LABS: Hematocrit 33.9 % (33.0-51.0); Mean Corpuscular HGB 33.5 pg (26.0-34.0); Mean Corpuscular HGB Conc 32.4 g/dL (31.5-36.5); Mean Corpuscular Volume 103 fL (80-100); Mean Platelet Volume 9.4 fL (9.1-12.4); Platelet Count 228 K/mm3 (150-400); RDW Coefficient Variation 13.2 % (11.7-14.2); RDW Standard Deviation 51.1 fL (35.1-46.3); Red Blood Cell Count 3.28 M/mm3 (3.80-5.20); White Blood Cell Count 6.55 K/mm3 (4.00-11.30)
[2024-03-06 05:35] LABS: Albumin, Blood 3.3 g/dL (3.4-5.0); Anion Gap 8 mmol/L (3-11); Blood Urea Nitrogen 11 mg/dL (8-24); Bun/Creatinine Ratio 11.9 (12.0-20.0); CO2, Blood 25 mmol/L (21-32); Calcium, Blood 8.9 mg/dL (8.5-10.1); Chloride, Blood 115 mmol/L (98-108); Creatinine, Blood 0.93 mg/dL (0.40-1.00); Glomerular Filtration Rate 64 (60-); Glucose, Blood 112 mg/dL (70-99); Magnesium, Blood 2.4 mg/dL (1.6-2.4); Phosphorus, Blood 3.5 mg/dL (2.5-4.9); Potassium, Blood 3.2 mmol/L (3.5-5.5); Sodium, Blood 145 mmol/L (136-145)
--- NOTE | 2024-03-06 06:39 | NUR ---
AAOX3. PT IS ON FULL LIQUID DIET BUT ASKS FOR FOOD NOT ON LIST, ADIVSED TO DISCUSS WITH IN AM. PT IS TOLERATING FULL LIQUID AND PUDDING WITH HER PILLS. PACEMAKER AND WATCH IN PLACE. 2L O2 VIA NC @ HS. AMBULATES TO BSC. BRACE ON L WRIST FROM A [facility] ADMIT. POWERGLIDE TO RUE WITH NS @ 50ML/HR INFUSING WITHOUT DIFFICULTY.
[2024-03-06 07:22] VITALS: BP 174/82
[2024-03-06] MEDS ORDERED: MUCINEX SINUS PO (11:59)
--- NOTE | 2024-03-06 12:14 | NUR ---
DISCHARGE SUMMARY PT DC THIS SHIFT. DC INSTRUCTION GONE OVER WITH PT WHOM STATED UNDERSTANDING. PT WAS TAKEN DOWN TO PRIVATE VEHICLE VIA WHEELCHAIR ACCOMPANIED BY CLEAN OUT DRILLER HELPER AND PT DAUGHTER.
== END 2024-03-06 12:20 | disposition home or self-care (01) | DRG 389 ==
LOC: ER 22:26 → ERHOLD 02-29 05:35 → MEDS 02-29 05:35 → ENPENDDIS 03-06 11:52 → MEDS 03-06 12:20
PROVIDERS: Internal Medicine; Student in an Organized Health Care Education/Training Program; ADMIT Internal Medicine
DX: K56.609 Unspecified intestinal obstruction, unspecified as to partial versus complete obstruction (principal); I69.354 Hemiplegia and hemiparesis following cerebral infarction affecting left non-dominant side; Z66 Do not resuscitate; I48.0 Paroxysmal atrial fibrillation; M10.9 Gout, unspecified; E78.5 Hyperlipidemia, unspecified; K21.9 Gastro-esophageal reflux disease without esophagitis; I10 Essential (primary) hypertension; F31.9 Bipolar disorder, unspecified; F41.9 Anxiety disorder, unspecified; G20.A1 Parkinson's disease without dyskinesia, without mention of fluctuations; E11.9 Type 2 diabetes mellitus without complications; J45.909 Unspecified asthma, uncomplicated; G89.29 Other chronic pain; G47.30 Sleep apnea, unspecified; I25.10 Atherosclerotic heart disease of native coronary artery without angina pectoris; K59.00 Constipation, unspecified; I69.320 Aphasia following cerebral infarction; Z88.2 Allergy status to sulfonamides; Z88.1 Allergy status to other antibiotic agents; Z88.8 Allergy status to other drugs, medicaments and biological substances; Z91.040 Latex allergy status; Z91.041 Radiographic dye allergy status; Z91.018 Allergy to other foods; Z79.899 Other long term (current) drug therapy; Z79.01 Long term (current) use of anticoagulants; Z95.0 Presence of cardiac pacemaker; Z86.718 Personal history of other venous thrombosis and embolism; Z98.1 Arthrodesis status; Z90.49 Acquired absence of other specified parts of digestive tract; Z85.038 Personal history of other malignant neoplasm of large intestine; Z98.84 Bariatric surgery status
CPT/HCPCS: 36415; 71045; 74177; 80053; 80069; 81001; 82607; 82746; 82947; 83690; 83735; 83880; 85025; 85027; 93005; 93010; 94762; 99285-25; A9270; C1751; J0360; J0780; J1170; J1200; J1720; J2060; J2405; J3010; J7030; Q9967

== ENCOUNTER → 2024-04-15 | Outpatient (CLI) | payer MEDICARE, OTHER ==
[~2024-04-15] MED LIST changes: +MUCINEX SINUS PO; +TOPI100 PO
[2024-04-15 13:49] LABS: Source, Urine Clean Catch
[2024-04-15 14:08] LABS: Appearance, Urine Clear (Clear); Bilirubin, Urine Neg (Neg); Blood, Urine Neg (Neg); Color, Urine Yellow (P-Yellow); Glucose Qualitative, Urine Neg (Neg); Ketones, Urine Neg (Neg); Leukocyte Esterase, Urine Neg (Neg); Nitrite, Urine Neg (Neg); Protein, Urine Neg (Neg); Specific Gravity, Urine 1.005 (1.003-1.022); Urobilinogen, Urine NORM (Normal)
== END | disposition home or self-care (01) ==
LOC: LAB SHORT 13:30 → LAB 13:30
PROVIDERS: Internal Medicine
DX: N39.0 Urinary tract infection, site not specified (principal)
CPT/HCPCS: 81003

== ENCOUNTER → 2024-12-22 | Outpatient (CLI) | payer MEDICARE, OTHER ==
[2024-12-22 18:04] LABS: Source, Urine Clean Catch
[2024-12-22 18:30] LABS: Bilirubin, Urine Neg (Neg); Color, Urine Yellow (P-Yellow); Glucose Qualitative, Urine Neg (Neg); Ketones, Urine 1+ (Neg); Leukocyte Esterase, Urine 3+ (Neg); Protein, Urine 2+ (Neg); Specific Gravity, Urine 1.015 (1.003-1.022); Urobilinogen, Urine 1+ (Normal)
[2024-12-22 18:42] LABS: White Blood Cells, Urine 50-100 /hpf (0-5)
== END ==
LOC: LAB 18:03 → LAB SHORT 18:03
PROVIDERS: Internal Medicine
DX: N39.0 Urinary tract infection, site not specified (principal)
CPT/HCPCS: 81001; 87077; 87086; 87186

== ENCOUNTER → 2025-01-04 | Outpatient (CLI) | payer MEDICARE, OTHER ==
[2025-01-04 10:48] LABS: Source, Urine Clean Catch
[2025-01-04 11:28] LABS: Bilirubin, Urine Neg (Neg); Color, Urine Yellow (P-Yellow); Glucose Qualitative, Urine Neg (Neg); Ketones, Urine Neg (Neg); Leukocyte Esterase, Urine 3+ (Neg); Protein, Urine 2+ (Neg); Specific Gravity, Urine 1.010 (1.003-1.022); Urobilinogen, Urine NORM (Normal)
[2025-01-04 11:49] LABS: White Blood Cells, Urine 50-100 /hpf (0-5)
== END ==
LOC: LAB SHORT 10:46 → LAB 10:46
PROVIDERS: Internal Medicine
DX: N39.0 Urinary tract infection, site not specified (principal)
CPT/HCPCS: 81001; 87086; 87186

== ENCOUNTER → 2025-02-13 | Outpatient (CLI) | payer MEDICARE, OTHER | LOC: LAB SHORT 18:26 → LAB 18:26 | DX: N39.0 Urinary tract infection, site not specified (principal) | CPT/HCPCS: 87077; 87086; 87186 ==

== ENCOUNTER → 2025-02-27 | Outpatient (CLI) | payer MEDICARE, OTHER | LOC: LAB SHORT 18:14 → LAB 18:14 | DX: N39.0 Urinary tract infection, site not specified (principal) | CPT/HCPCS: 87077; 87086; 87186 ==

== ENCOUNTER 2025-04-21 21:32 | Observation (INO) | payer MEDICARE, OTHER ==
[~2025-04-21] VITALS: Ht 160 cm; Wt 64.5 kg
[2025-04-21 22:16] LABS: BASOPHILS ABSOLUTE AUTO 0.02 K/mm3 (0.00-0.23); BASOPHILS PERCENT AUTO 0 % (0-2); EOSINOPHILS ABSOLUTE AUTO 0.09 K/mm3 (0.00-0.68); EOSINOPHILS PERCENT AUTO 2 % (0-6); Hematocrit 29.1 % (33.0-51.0); Hemoglobin 9.3 g/dL (11.5-16.0); IMMATURE GRAN ABSOLUTE AUTO 0.01 K/mm3 (0.00-0.10); IMMATURE GRAN PERCENT AUTO 0 % (0-1); LYMPHOCYTES ABSOLUTE AUTO 1.47 K/mm3 (0.84-5.20); LYMPHOCYTES PERCENT AUTO 29 % (21-46); MONOCYTES ABSOLUTE AUTO 0.31 K/mm3 (0.16-1.47); MONOCYTES PERCENT AUTO 6 % (4-13); Mean Corpuscular HGB Conc 32.0 g/dL (31.5-36.5); Mean Corpuscular Volume 110 fL (80-100); NEUTROPHILS ABSOLUTE AUTO 3.25 K/mm3 (1.96-9.15); NEUTROPHILS PERCENT AUTO 63 % (41-73); NRBC ABSOLUTE 0.00 K/mm3 (0.00-0.02); NRBC Auto 0.0 /100 WBC (0.0-0.2); Platelet Count 191 K/mm3 (150-400); RDW Coefficient Variation 14.9 % (11.7-14.2); RDW Standard Deviation 60.2 fL (35.1-46.3)
[2025-04-21 22:37] LABS: Alanine Aminotransfer (ALT/SGP 11.0 U/L (12-78); Albumin, Blood 3.3 g/dL (3.4-5.0); Albumin/Globulin Ratio 1.1 (0.8-1.8); Anion Gap 9.0 mmol/L (3-11); Aspartate Aminotrans (AST/SGOT 18.0 U/L (12-37); Bilirubin, Total 0.7 mg/dL (0.1-1.0); Blood Urea Nitrogen 15.0 mg/dL (8-24); CO2, Blood 22.0 mmol/L (21-32); Calcium, Blood 8.2 mg/dL (8.5-10.1); Chloride, Blood 110.0 mmol/L (98-108); Creatinine, Blood 1.17 mg/dL (0.40-1.00); Globulin, Blood 2.9 g/dL (2.2-4.0); Glucose, Blood 134.0 mg/dL (70-99); Potassium, Blood 3.8 mmol/L (3.5-5.5); Sodium, Blood 137.0 mmol/L (136-145); Total Protein, Blood 6.2 g/dL (6.4-8.2)
[2025-04-21 23:45] LABS: Prothrombin Time Results 11.4 Sec (9.7-11.5)
[2025-04-21] MEDS ORDERED: Ondansetron HCl 2 MG / ML 2ML Vial IV PRN (23:45)
[2025-04-21] MEDS ORDERED: FLU VACC TS2025(65UP)/MF59C/PF 45 MCG/0.5 ML SYRINGE IM SCH (23:45)
[2025-04-21] MEDS ORDERED: FentaNYL Citrate 50 MCG/ML 2 ML Injection IV PRN (23:45)
[2025-04-21 23:56] LABS: Anti-Xa UFH, PHA Monitoring 1.28 IU/mL
[2025-04-22] VITALS (7 sets, daily range): BP systolic 121–174; BP diastolic 66–104
[2025-04-22] MEDS ORDERED: Heparin Sodium,Porcine/0.5 NS 500 ML IV SCH (00:15)
[2025-04-22] MEDS ORDERED: CEPH250A PO (01:16)
[2025-04-22] MEDS ORDERED: HydrALAZINE HCl 20 MG / ML 1ML Vial IV PRN (02:10)
--- NOTE | 2025-04-22 03:21 | NUR ---
ASSUMPTION OF CARE PT ARRIVED TO ICU AROUND 52. PT STOOD AND TRANSFERED FROM [facility] TO ICU BED. PT A&O X4, CALM, COPERATIVE TO CARE. HR IN THE 60'S, SR, PACER PLACED IN 2019. PT REPORTS INTERMITTENT CP, DENIED ANY ACTIVE CP. SHE REPORTS NEUROPATHY. SBP ELEVATED IN THE 150'S-160'S. SpO2 >92% ON RA, SHE DENIES ANY SOB. POWERGLIDE PLACED, PT STARTED ON HEPARIN GTT. PT TO BE NPO, PENDING CARDIOLOGY CONSULT. PTS DAUGHTER AT BEDSIDE. PT RESTING IN BED AT THIS TIME, CALL LIGHT IN REACH.
[2025-04-22] MEDS ORDERED: DULO60 PO (03:40)
[2025-04-22 03:43] LABS: Hematocrit 27.7 % (33.0-51.0); Hemoglobin 8.8 g/dL (11.5-16.0); IMMATURE RETIC FRACTION 18.5 % (2.3-16.0); RETIC HGB EQUIVALENT 37.1 pg (28.20-36.60); RETICULOCYTE COUNT PERCENT 3.49 % (0.50-2.50)
[2025-04-22] MEDS ORDERED: GABA100 PO (03:44)
[2025-04-22] MEDS ORDERED: HYDCOR10 PO (03:47)
[2025-04-22] MEDS ORDERED: Robaxin750 MG PO (03:51)
[2025-04-22] MEDS ORDERED: ONDA4 PO (03:53)
[2025-04-22] MEDS ORDERED: SENN187 PO (03:57)
[2025-04-22] MEDS ORDERED: SUCR1 PO (03:59)
[2025-04-22] MEDS ORDERED: BISA10S PR (04:04)
[2025-04-22 04:07] LABS: Ferritin, Serum 63.0 ng/mL (8-252); Total Iron Binding Capacity 271.0 ug/dL (250-450)
[2025-04-22] MEDS ORDERED: DICLOFENAC SOD100 GM TOP (04:07)
--- NOTE | 2025-04-22 05:56 | NUR ---
SHIFT SUMMARY PT A&O X4, CALM, COOPERATIVE TO CARE. HR IN THE 60'S, SR, PACEMAKER. PT REPORTING INTERMITTENT CP/PRESSURE STARTING TODAY/ T/O SHIFT PT DENIED ANY CP. AROUND 0500 PT STARTED HAVING 8/10 CP THAT WENT INTO HER SHOULDER, DENIED RADIATION DOWN ARM OR INTO JAW. EKG COMPLETED, UNCHANGED FROM PRIOR EKG, MD NOTIFIED. ORDERS PLACED FOR SUBLINGUAL NITRO. NITRO ORDERED FOR X3 DOSES, [id number], SEE EMAR. PT RECIEVED 3 DOES OF NITRO AND 25MCG OF FENTANYL. PT REPORTS CP HAS RESOLVED AT THIS TIME. PT ON RA, Sp02 AT 100%, SHE DENIES ANY SOB. PT NPO T/O NIGHT, CARDIOLOGY CONSULT IN PLACE. PT RESTING IN BED AT THIS TIME. CALL LIGHT IN REACH. WILL MONITOR PT AND REPORT TO ONCOMING RN.
[2025-04-22] MEDS ORDERED: Magnesium Hydroxide Conc 10 ML UDC PO PRN (06:40)
[2025-04-22] MEDS ORDERED: Insulin Human Lispro 100 Units/ML 3ML Syringe SC SCH (07:30)
[2025-04-22 08:12] LABS: BASOPHILS ABSOLUTE AUTO 0.03 K/mm3 (0.00-0.23); BASOPHILS PERCENT AUTO 1 % (0-2); EOSINOPHILS ABSOLUTE AUTO 0.13 K/mm3 (0.00-0.68); EOSINOPHILS PERCENT AUTO 3 % (0-6); Hematocrit 28.7 % (33.0-51.0); Hemoglobin 8.9 g/dL (11.5-16.0); IMMATURE GRAN ABSOLUTE AUTO 0.01 K/mm3 (0.00-0.10); IMMATURE GRAN PERCENT AUTO 0 % (0-1); LYMPHOCYTES ABSOLUTE AUTO 1.67 K/mm3 (0.84-5.20); LYMPHOCYTES PERCENT AUTO 34 % (21-46); MONOCYTES ABSOLUTE AUTO 0.36 K/mm3 (0.16-1.47); MONOCYTES PERCENT AUTO 7 % (4-13); Mean Corpuscular HGB Conc 31.0 g/dL (31.5-36.5); Mean Corpuscular Volume 111 fL (80-100); NEUTROPHILS ABSOLUTE AUTO 2.68 K/mm3 (1.96-9.15); NEUTROPHILS PERCENT AUTO 55 % (41-73); NRBC ABSOLUTE 0.00 K/mm3 (0.00-0.02); NRBC Auto 0.0 /100 WBC (0.0-0.2); Platelet Count 182 K/mm3 (150-400); RDW Coefficient Variation 15.1 % (11.7-14.2); RDW Standard Deviation 61.6 fL (35.1-46.3)
--- NOTE | 2025-04-22 08:30 | NUR ---
PALLIATIVE CARE CONSULT: CONSULT RECEIVED FOR ADVANCED CARE PLANNING AND SYMPTOM MANAGEMENT. REVIEWED MEDICAL RECORD. PT HAS POLST AND POA DOCUMENT ON FILE. POLST STATES DNR COMFORT MEASURES. PT IS FULL CODE FOR PLANNED PROCEDURE. POA IS SANDI HAWK WHO IS LISTED NOK.
[2025-04-22 08:32] LABS: Alanine Aminotransfer (ALT/SGP 11.0 U/L (12-78); Albumin, Blood 3.0 g/dL (3.4-5.0); Albumin/Globulin Ratio 1.0 (0.8-1.8); Anion Gap 9.0 mmol/L (3-11); Aspartate Aminotrans (AST/SGOT 17.0 U/L (12-37); Bilirubin, Total 0.8 mg/dL (0.1-1.0); Blood Urea Nitrogen 16.0 mg/dL (8-24); CO2, Blood 24.0 mmol/L (21-32); Calcium, Blood 8.4 mg/dL (8.5-10.1); Chloride, Blood 111.0 mmol/L (98-108); Creatinine, Blood 1.32 mg/dL (0.40-1.00); Globulin, Blood 2.9 g/dL (2.2-4.0); Glucose, Blood 113.0 mg/dL (70-99); Potassium, Blood 4.0 mmol/L (3.5-5.5); Sodium, Blood 140.0 mmol/L (136-145); Total Protein, Blood 5.9 g/dL (6.4-8.2)
[2025-04-22] MEDS ORDERED: Dose Adjust by Pharmacy XX STA (08:39)
[2025-04-22] MEDS ORDERED: Heparin Sodium 5000 Units/ML 1ML MDV IV ONE (08:40)
[2025-04-22] MEDS ORDERED: DULoxetine HCL 60 MG Capsule DR PO SCH (09:00)
[2025-04-22] MEDS ORDERED: Levodopa/Carbidopa 100 / 25 MG Tab PO SCH (09:00)
--- NOTE | 2025-04-22 09:30 | NUR ---
PALLIATIVE CARE VISIT: SPOKE TO PT AND DAUGHTER SANDI IN THE ROOM. PT IS WANTING TO COMPLETE AN ADVANCE DIRECTIVE SINCE HER POA DOCUMENT IS FOR FINANCIAL ONLY. PT IS ORIENTED TO SELF, TIME, DATE, PLACE AND SITUATION. EDUCATED PT ON ADVANCE DIRECTIVE. SHE INITIALED HER CHOICES. GAVE MOBILE NOTARY NUMBERS PT LIKELY TO DC TODAY AND NO NOTARY HERE UNTIL THURSDAY. ALSO DISCUSSED CODE STATUS. PT STATES SHE IS GOING TO HER DAUGHTERS AT END OF MONTH IN [place] AND SO SHE WANTS TO CHANGE CODE STATUS TO FULL CODE SO SHE CAN MAKE IT TO [place]. EDUCATED PT ON RISKS VS BENEFITS OF CPR. PT STATED SHE WOULD NOT WANT LIFE SUPORT HALFWAY AND SANDI TO MAKE MEDICAL DECISIONS FOR HER IF SHE CANNOT. PT IS AGREEABLE TO KEEPING CURRENT POLST OF DNR ON FILE BUT REMAIN FULL CODE FOR THIS VISIT JUST IN CASE SHE NEEDS FURTHER INTERVENTIONS. ALL SHE WANTS IS TO BE ABLE TO MAKE IT TO [place] TO CELEBRATE HER OTHER DAUGHTERS BIRTHDAY. MD ROUNDED DURING VISIT. PT SYMPTOMS ARE CURRENTLY MANAGED AND BEING ADDRESSED BY PROVIDER.
--- NOTE | 2025-04-22 10:45 | NUR ---
AM NOTE: PT A/OX4 ABLE TO ANSWER QUESTIONS. DAUGHTER, SANDI AT BEDSIDE. PT DENIES ANY CHEST PAIN THIS AM. SHE DOES ENDORSE A HEADACHE AND STOMACHE PAIN. PT MEDICATED PER EMAR. PT OOB WITH STAND BY ASSIT TO THE BSC. SHE IS ON RA WITH SPO2>90%. SHE REMAINS IN SINUS WITH RATES 60-70S. CALL LIGHT IN REACH, CARE CONTINUES
[2025-04-22] MEDS ORDERED: Furosemide 10 MG / ML 2ML Vial IV ONE (13:00)
[2025-04-22] MEDS ORDERED: Furosemide 10 MG / ML 2ML Vial IV SCH (13:00)
[2025-04-22 14:15] LABS: Hematocrit 29.0 % (33.0-51.0); Hemoglobin 9.2 g/dL (11.5-16.0)
--- NOTE | 2025-04-22 17:00 | NUR ---
SHIFT NOTE: NO ACUTE CHANGES THIS SHIFT. PT CONTINUES TO DENY CHEST PAIN. SHE CONTINUES TO ENDORSE INT EPIGASTRIC/ABD PAIN. SHE REPORTS FEELING GASSY WITH FREQUENT BURPING. SHE IS USING THE BSC WITH STAND BY ASSISTANCE. FAMILY UP TO DATE ON PLAN OF CARE. PT AND FAMILY EDUCATED ON NEW MEDICATIONS ORDERED AND GIVEN NEW MEDICATION EDUCATION CARDS. CALL LIGHT IN REACH
[2025-04-23] VITALS (7 sets, daily range): BP systolic 149–169; BP diastolic 63–78
--- NOTE | 2025-04-23 02:48 | NUR ---
REPORT GIVEN TO HARSHAL PETERSEN TO ASSUME CARE FOR THIS PT.
--- NOTE | 2025-04-23 02:48 | NUR ---
SHIFT SUMMARY PT IS A&OX4, PLEASANT AND COOPERATIVE WITH CARE. NO ACUTE CHANGES THIS SHIFT. PT IS HYPERTENSIVE. HOWEVER, DENIES CHEST PAIN/PRESSURE T/O SHIFT. HYDRALAZINE GIVEN FOR HIGH BP. PT RESTED T/O SHIFT WITH EVEN AND UNLABORED RESPIRATIONS, BED IN THE LOWEST POSITION, AND CALL LIGHT WITHIN REACH.
[2025-04-23 05:05] LABS: BASOPHILS ABSOLUTE AUTO 0.01 K/mm3 (0.00-0.23); BASOPHILS PERCENT AUTO 0 % (0-2); EOSINOPHILS ABSOLUTE AUTO 0.11 K/mm3 (0.00-0.68); EOSINOPHILS PERCENT AUTO 2 % (0-6); Hematocrit 29.0 % (33.0-51.0); Hemoglobin 9.3 g/dL (11.5-16.0); IMMATURE GRAN ABSOLUTE AUTO 0.01 K/mm3 (0.00-0.10); IMMATURE GRAN PERCENT AUTO 0 % (0-1); LYMPHOCYTES ABSOLUTE AUTO 1.55 K/mm3 (0.84-5.20); LYMPHOCYTES PERCENT AUTO 29 % (21-46); MONOCYTES ABSOLUTE AUTO 0.35 K/mm3 (0.16-1.47); MONOCYTES PERCENT AUTO 6 % (4-13); Mean Corpuscular HGB Conc 32.1 g/dL (31.5-36.5); Mean Corpuscular Volume 109 fL (80-100); NEUTROPHILS ABSOLUTE AUTO 3.41 K/mm3 (1.96-9.15); NEUTROPHILS PERCENT AUTO 63 % (41-73); NRBC ABSOLUTE 0.00 K/mm3 (0.00-0.02); NRBC Auto 0.0 /100 WBC (0.0-0.2); Platelet Count 181 K/mm3 (150-400); RDW Coefficient Variation 15.0 % (11.7-14.2); RDW Standard Deviation 60.6 fL (35.1-46.3)
[2025-04-23 05:42] LABS: Anion Gap 9.0 mmol/L (3-11); Blood Urea Nitrogen 18.0 mg/dL (8-24); CO2, Blood 25.0 mmol/L (21-32); Calcium, Blood 8.4 mg/dL (8.5-10.1); Chloride, Blood 111.0 mmol/L (98-108); Creatinine, Blood 1.32 mg/dL (0.40-1.00); Glucose, Blood 104.0 mg/dL (70-99); Magnesium, Blood 2.1 mg/dL (1.6-2.4); Potassium, Blood 3.6 mmol/L (3.5-5.5); Sodium, Blood 141.0 mmol/L (136-145)
[2025-04-23] MEDS ORDERED: Potassium Chl 20MEQ/Water100ML 100 ML IV STA (06:37)
--- NOTE | 2025-04-23 06:42 | NUR ---
ASSUMED CARE @0330 NO CHANGES NOTED FROM PREVIOUS NOC RN. LUNGS PRESENT WITH SLIGHT CRACKLES ON AUSCULTATION NOTED BY PREVIOUS RN. PT VOIDED A LARGE AMOUNT ON ASSUMPTION OF CARE, CONCERN FROM PREVIOUS RN OF LACK OF URINATION. PT PLEASANT USING CALL LIGHT APPROPRIATELY MEDICATED BY BREAK NURSE PER EMAR FOR PAIN.
[2025-04-23] MEDS ORDERED: NS 250 ML IV PRN (07:35)
[2025-04-23] MEDS ORDERED: Furosemide 10 MG / ML 2ML Vial IV SCH (09:00)
[2025-04-23] MEDS ORDERED: Enoxaparin 40 MG/0.4 ML SYR SC SCH (09:00)
--- NOTE | 2025-04-23 09:00 | NUR ---
pt laying in bed awake a/ox4, pleasant and coopertive with care, follows commands well, a bit chickal[place], lungs are clear t/o, a bit dim, on r/a, no cough noted, resp even and unlabored, hrr, tele in place running sr per monitor, see strip, running 60 to 70's, has a pacer and watchman, no edema noted, ppp+1, cap refill<3 sec, vs stable, afebrile, power glide to stalin, site is clear and patent, btx4, abd flat soft nontender, voids without diff, skin c/w/d, maew, moira, call light in reach, complains of pin/needle pain to feet, she has routine pain medications, and gave heating pad for comfort which she states did help.
[2025-04-23] MEDS ORDERED: ATOR80 PO (16:32)
[2025-04-23] MEDS ORDERED: METO25ER PO (16:32)
[2025-04-23] MEDS ORDERED: NITR.4SL SL (16:33)
--- NOTE | 2025-04-23 16:53 | NUR ---
Pt has been discharged to home with home health, daughter here to take her home, power glide and piv removed intact, went over discharge instructions with her and daughter, they verbalized understanding, left with all belongings via wheelchair with public employment mediator and daughter in attendence, new meds faxed to [facility].
== END 2025-04-23 16:50 | disposition home health service (06) ==
LOC: ER 21:32 → MEDS 21:33 → ERHOLD 21:33 → ICUE 21:33 → ER 21:33 → MEDS 21:34 → ERHOLD 04-22 00:50 → ICUE 04-22 00:50 → MEDS 04-22 00:50 → ICUE 04-22 15:10 → MEDS 04-22 15:10 → ICUE 04-22 18:10 → MEDS 04-22 18:24 → ENPENDDIS 04-23 15:37 → MEDS 04-23 16:50
PROVIDERS: Emergency Medicine; ADMIT Internal Medicine
DX: I24.9 Acute ischemic heart disease, unspecified (principal); I27.20 Pulmonary hypertension, unspecified; I25.10 Atherosclerotic heart disease of native coronary artery without angina pectoris; K21.9 Gastro-esophageal reflux disease without esophagitis; E78.5 Hyperlipidemia, unspecified; I50.21 Acute systolic (congestive) heart failure; I13.0 Hypertensive heart and chronic kidney disease with heart failure and stage 1 through stage 4 chronic kidney disease, or unspecified chronic kidney disease; N18.30 Chronic kidney disease, stage 3 unspecified; N17.9 Acute kidney failure, unspecified; I48.0 Paroxysmal atrial fibrillation; E11.22 Type 2 diabetes mellitus with diabetic chronic kidney disease; G20.A1 Parkinson's disease without dyskinesia, without mention of fluctuations; F31.9 Bipolar disorder, unspecified; Z88.2 Allergy status to sulfonamides; Z88.1 Allergy status to other antibiotic agents; Z88.5 Allergy status to narcotic agent; Z91.040 Latex allergy status; Z88.8 Allergy status to other drugs, medicaments and biological substances; Z91.018 Allergy to other foods; Z79.01 Long term (current) use of anticoagulants; Z79.899 Other long term (current) drug therapy
CPT/HCPCS: 71045; 80048; 80053; 82728; 82947; 83540; 83550; 83735; 83880; 84484; 85014; 85018; 85025; 85045; 85520; 85610; 85730; 93005; 93010; 93306; 96365; 96366; 96375; 96376; 97116; 97161; 99285-25; A9270; C1751; G0378; J0360; J1644; J1650; J1938; J3010; J3480; J7050